=== PATIENT | female | born 1940 | race Caucasian/White ===

== ENCOUNTER 2016-10-29 12:06 | Emergency (ER) | payer OTHER, BC ==
[2016-10-29 12:27] VITALS: TEMP 98; BMI 26.8
--- NOTE | 2016-10-29 12:58 | PDOC ---
History of Present Illness - General Chief Complaint: Pain Stated Complaint: PCP SENT, LEG PAIN,R/O DVT Time Seen by Provider: 10/29/16 12:42 History Source: Patient Exam Limitations: No Limitations - History of Present Illness Initial Comments: 10/29/16 13:12 Patient is a 76 year old female with PMH of HTN & varicose veins who presents to ED with left lower extremity tenderness & swelling. Patient states she has had purplish discoloration and occasional tenderness at left medial leg directly above ankle for over 1 year. She has seen dermatology & vascular surgeon & had varicose vein laser treatment in July. She states the erythma & tenderness has remained, and has increased over the last few weeks, spreading towards the posterior of the calf. The area has increased warmth, erythema & is tender to palpation. Denies fever, chills, CP, SOB,Abdominal pain or other systemic symptoms. Past History - Travel Traveled outside of the country in the last 30 days: No Close contact w/someone who was outside of country & ill: No - Past Medical History Allergies/Adverse Reactions: Allergies Allergy/AdvReac Type Severity Reaction Status Date / Time No Known Allergies Allergy Verified 10/29/16 12:24 Home Medications: Ambulatory Orders Olmesartan Medoxomil [Benicar -] 20 mg PO DAILY 11/03/13 Aspirin [Aspirin EC] 325 mg PO DAILY #0 tablet. 11/09/13 Amlodipine Besylate [Norvasc -] 5 mg PO DAILY #7 tablet 03/27/15 Atorvastatin Ca [Lipitor] 20 mg PO HS 10/29/16 Cardiac Disorders: Yes (foramen ovale) HTN: Yes Hypercholesterolemia: Yes - Surgical History Abdominal Surgery: Yes (hysterectomy) - Family Disease History Comment:: 10/29/16 13:19 noncontributory - Psycho/Social/Smoking Cessation Hx Anxiety: No Suicidal Ideation: No Smoking History: Never smoked Have you smoked in the past 12 months: No Hx Alcohol Use: Yes (social (glass wine "every once in a while")) Drug/Substance Use Hx: No Substance Use Type: None Hx Substance Use Treatment: No Review of Systems - Review of Systems Able to Perform ROS?: Yes Is the patient limited Vietnamese proficient: No Integumentary: Yes: Bruising, Change in Color, Erythema All Other Systems: Reviewed and Negative *Physical Exam - Vital Signs Last Vital Signs Temp Pulse Resp BP Pulse Ox 98 F 108 H 19 152/74 99 10/29/16 12:24 10/29/16 12:24 10/29/16 12:24 10/29/16 12:24 10/29/16 12:24 - Physical Exam General Appearance: Yes: Nourished, Appropriately Dressed HEENT: positive: EOMI, JEFFERY, Normal ENT Inspection, Pharynx Normal Neck: positive: Trachea midline, Normal Thyroid, Supple Respiratory/Chest: positive: Lungs Clear, Normal Breath Sounds Cardiovascular: positive: Regular Rhythm, S1, S2, Tachycardia Gastrointestinal/Abdominal: positive: Normal Bowel Sounds, Flat, Soft Musculoskeletal: positive: Normal Inspection Extremity: positive: Normal Capillary Refill, Normal Range of Motion, Other ( 3x3 inch erythematous area with vascular discoloration on left calf medially above ankle. increased warmth, TTP & swelling inr egion. Palpable pulses bilateral LE) ED Treatment Course - RADIOLOGY Radiology Studies Ordered: Category Date Time Status DUPLEX VASCUL US-1 LEG [US] Stat Ultrasound 10/29/16 12:44 Ordered Medical Decision Making - Medical Decision Making 10/29/16 13:21 DVT vs Cellulitis vs Phlebitis vs combination. LLE US ordered. ID Dr Nelson is consulting on the case. May start antibiotic regimen pending ultrasound results. 10/29/16 13:58 LLE US negative for DVT or any other acute findings 10/29/16 14:29 Discussed case with ID Dr Nelson. Will get in touch with Dr Alvarez to inquire about PMH 10/29/16 14:[address] Alvarez. Patient has old clot at left common femoral vein that he has been following. Patient to followup with him as an outpatient. Instructed her to return to ED if swelling, pain or discoloration worsens. *DC/Admit/Observation/Transfer Diagnosis at time of Disposition: Pain of left lower extremity - Discharge Dispostion Disposition: HOME Condition at time of disposition: Stable Admit: No - Referrals Referrals: Florin Echevarria MD [Primary Care Provider] - - Patient Instructions Additional Instructions: Patient to followup with Dr Alvarez. If redness, pain or swelling worsen, return to ER!
--- NOTE | 2016-10-29 13:15 | PDOC ---
Attending Attestation - Resident Resident Name: Cristian Randall - ED Attending Attestation I have performed the following: I have examined & evaluated the patient, The case was reviewed & discussed with the resident, I agree w/resident's findings & plan, Exceptions are as noted - HPI HPI: 76 yo F history HTN, varicose veings presents with LLE tenderness and swelling. She notes a dark discoloration that has been present to the medial lower leg for over a year, but notes that recently it has been worsening, extending to the posterior part of her lower leg. She states that her compression stockings are not helping. She had a laser procedure for a varicose vein in the same leg, notes that the symptoms did not change, but that now she has a hard nodule to the L thigh. Denies fever, chills, weakness, numbness. - Physicial Exam PE: GENERAL: Awake, alert, and fully oriented, in no acute distress HEAD: No signs of trauma EYES: PERRLA, EOMI, sclera anicteric, conjunctiva clear ENT: Auricles normal inspection, hearing grossly normal, nares patent, oropharynx clear without exudates. Moist mucosa NECK: Normal ROM, supple, no lymphadenopathy, JVD, or masses LUNGS: Breath sounds equal, clear to auscultation bilaterally. No wheezes, and no crackles HEART: Regular rate and rhythm, normal S1 and S2, no murmurs, rubs or gallops ABDOMEN: Soft, nontender, normoactive bowel sounds. No guarding, no rebound. No masses EXTREMITIES: L lower leg with darkened area to medial surface, extending to the posterior lower leg. +Warmth, tenderness to calf. Normal range of motion. No clubbing or cyanosis. No cords, erythema, or tenderness NEUROLOGICAL: Cranial nerves II through XII grossly intact. Normal speech, normal gait SKIN: Warm, Dry, normal turgor, no rashes or lesions noted. - Medical Decision Making Will obtain doppler sono to r/o DVT. Will discuss with Dr. Nelson and Dr. Alvarez.
[2016-10-29 15:05] VITALS: BP 144/74; PULSE 90
== END 2016-10-29 15:05 | disposition home or self-care (01) ==
LOC: JER 12:06
DX: M79.662 Pain in left lower leg (principal); Z86.718 Personal history of other venous thrombosis and embolism; I10 Essential (primary) hypertension; E78.00 Pure hypercholesterolemia, unspecified
CPT/HCPCS: 93971-TC; 99282-25

== ENCOUNTER 2017-01-23 17:13 | Emergency (ER) | payer OTHER, BC ==
[2017-01-23 17:18] VITALS: BMI 26.6
--- NOTE | 2017-01-23 17:34 | PDOC ---
History of Present Illness - General History Source: Patient Exam Limitations: No Limitations - History of Present Illness Initial Comments: 01/23/17 18:27 The patient is a 76 year old female with a significant past medical history of HTN and varicose veins, who presents to the emergency department today for further evaluation of back pain for 5 days. She states that her pain has been constant, dull, and worsening. She states that her pain is a 6/10 in severity occasionally becoming 10/10 in severity with sharp and shooting sensations resulting in loss of breath. She states that, earlier this week, she took one of her 's muscle relaxants and placed a heat pack on her pack for 4 hours with no alleviation of symptoms. She notes today she has taken motrin, 2 tylenol, and 3 ibuprofen with no alleviation of pain. She reports associated loss of appetite, nausea, and decreased urine output but denies dysuria. The patient denies fever, chills, and sweats. The patient denies vomiting, and diarrhea. The patient denies chest pain, cough. PCP: Dr. Echevarria [phone] PAST SURGICAL HISTORY: No significant history reported FAMILY HISTORY: No pertinent history reported SOCIAL HISTORY: None reported <El Holder - Last Filed: 01/23/17 20:32> <Jovan Bacon - Last Filed: 01/23/17 21:00> - General Chief Complaint: Pain, Acute Stated Complaint: PAIN, ACUTE Time Seen by Provider: 01/23/17 17:33 Past History <El Holder - Last Filed: 01/23/17 20:32> - Past Medical History Cardiac Disorders: Yes (foramen ovale) HTN: Yes Hypercholesterolemia: Yes - Surgical History Abdominal Surgery: Yes (hysterectomy) - Psycho/Social/Smoking Cessation Hx Anxiety: No Suicidal Ideation: No Smoking History: Never smoked Have you smoked in the past 12 months: No Information on smoking cessation initiated: No Hx Alcohol Use: No Drug/Substance Use Hx: No Substance Use Type: None Hx Substance Use Treatment: No <Jovan Bacon - Last Filed: 01/23/17 21:00> - Past Medical History Allergies/Adverse Reactions: Allergies Allergy/AdvReac Type Severity Reaction Status Date / Time No Known Allergies Allergy Verified 01/23/17 17:18 Home Medications: Ambulatory Orders Olmesartan Medoxomil [Benicar -] 20 mg PO DAILY 11/03/13 Aspirin [Aspirin EC] 325 mg PO DAILY #0 tablet. 11/09/13 Amlodipine Besylate [Norvasc -] 5 mg PO DAILY #7 tablet 03/27/15 Atorvastatin Ca [Lipitor] 20 mg PO HS 10/29/16 Ondansetron [Zofran Odt -] 4 mg SL TID #21 od.tablet 01/23/17 Oxycodone HCl/Acetaminophen [Percocet 5-325 mg Tablet] 1 - 2 tab PO Q6H #20 tab MDD 4 01/23/17 Review of Systems - Review of Systems Able to Perform ROS?: Yes Comments:: 01/23/17 18:27 GENERAL/CONSTITUTIONAL: No fever or chills. No weakness. HEAD, EYES, EARS, NOSE AND THROAT: No change in vision. No ear pain or discharge. No sore throat. CARDIOVASCULAR: No chest pain. RESPIRATORY: (+) Loss of breath. No cough, wheezing, or hemoptysis. GASTROINTESTINAL: (+) Nausea. No vomiting, diarrhea or constipation. GENITOURINARY: No dysuria, frequency, or change in urination. MUSCULOSKELETAL: (+) Back pain SKIN: No rash NEUROLOGIC: No headache, vertigo, loss of consciousness, or change in strength/ sensation. ENDOCRINE: (+) Loss of appetite. No increased thirst. No abnormal weight change. HEMATOLOGIC/LYMPHATIC: No anemia, easy bleeding, or history of blood clots. ALLERGIC/IMMUNOLOGIC: No hives or skin allergy. <El Holder - Last Filed: 01/23/17 20:32> *Physical Exam - Vital Signs Last Vital Signs Temp Pulse Resp BP Pulse Ox 97.9 F 104 H 18 172/77 99 01/23/17 17:16 01/23/17 17:16 01/23/17 17:16 01/23/17 17:16 01/23/17 17:16 - Physical Exam Comments: 01/23/17 18:28 GENERAL: Awake, alert, and fully oriented, in no acute distress HEAD: No signs of trauma EYES: PERRLA, EOMI, sclera anicteric, conjunctiva clear ENT: Auricles normal inspection, hearing grossly normal, nares patent, oropharynx clear without exudates. Moist mucosa NECK/BACK: (+) Back tenderness on palpation. Normal ROM, supple, no lymphadenopathy, JVD, or masses LUNGS: Breath sounds equal, clear to auscultation bilaterally. No wheezes, and no crackles HEART: Regular rate and rhythm, normal S1 and S2, no murmurs, rubs or gallops ABDOMEN: Soft, nontender, normoactive bowel sounds. No guarding, no rebound. No masses EXTREMITIES: Normal range of motion, no edema. No clubbing or cyanosis. No cords, erythema, or tenderness NEUROLOGICAL: Cranial nerves II through XII grossly intact. Normal speech, normal gait SKIN: Warm, Dry, normal turgor, no rashes or lesions noted. <El Holder - Last Filed: 01/23/17 20:32> - Vital Signs Last Vital Signs Temp Pulse Resp BP Pulse Ox 97.9 F 104 H 18 172/77 99 01/23/17 17:16 01/23/17 17:16 01/23/17 17:16 01/23/17 17:16 01/23/17 17:16 <Jovan Bacon - Last Filed: 01/23/17 21:00> ED Treatment Course - LABORATORY CBC & Chemistry Diagram: 01/23/17 18:27 01/23/17 18:27 - RADIOLOGY Radiograph Interpretation: 01/23/17 19:54 EXAM#: TYPE/EXAM: RESULT: [id number] CT/ABDOMEN PELVIS CT W/O CONTR Abdomen and pelvis CT without contrast Clinical information: left flank pain A 1 mm nonobstructing left renal mid pole calculus is seen. No other urinary tract calculus is identified. There is no hydroureteronephrosis. Left- sided colonic diverticulosis is seen without evidence of acute diverticulitis. There is no CT evidence of acute appendicitis. A 1.7 cm right hepatic lobe cyst is noted which appears slightly increased in size in comparison to a chest CT study of 01/25/2011 (1.5 cm). A small splenic calcification is again seen probably representing a granuloma. The pancreas, gallbladder, adrenal glands and right kidney demonstrate no discrete noncontrast pathology. There is no aortic aneurysm. No free intraperitoneal fluid, pneumoperitoneum or bowel obstruction. Status post hysterectomy. No flank hernia seen. The visualized osseous structures demonstrate no obvious CT evidence of acute pathology or neoplastic disease. Impression: A 1 mm nonobstructing left renal calculus is noted. No other definite urinary tract calculus is identified. There are no CT findings of acute pathology. Left-sided colonic diverticulosis. Small right hepatic lobe cyst. Punctate splenic calcification. Reported By: Alexander Tyler MD 01/23/171939 <El Holder - Last Filed: 01/23/17 20:32> - LABORATORY CBC & Chemistry Diagram: 01/23/17 18:27 01/23/17 18:27 <Jovan Bacon - Last Filed: 01/23/17 21:00> Medical Decision Making - Medical Decision Making 01/23/17 20:33 The patient's labs and CT are normal. Her pain is likely musculoskeletal pain and is not due to a kidney stone nor a kidney infection. <El Holder - Last Filed: 01/23/17 20:32> *DC/Admit/Observation/Transfer - Attestations Scribe Attestion: 01/23/17 18:28 Documentation prepared by El Holder, acting as medical artist for Jovan Bacon DO. <El Holder - Last Filed: 01/23/17 20:32> - Discharge Dispostion Admit: No - Attestations Physician Attestion: 01/23/17 17:34 I, Dr. Jovan Bacon, attest that this document has been prepared under my direction and personally reviewed by me in its entirety. I further attest, that it accurately reflects all work, treatment, procedures and medical decision -making performed by me. <Jovan Bacon - Last Filed: 01/23/17 21:00> Diagnosis at time of Disposition: Musculoskeletal pain - Discharge Dispostion Disposition: HOME Condition at time of disposition: Good - Prescriptions Prescriptions: Oxycodone HCl/Acetaminophen [Percocet 5-325 mg Tablet] 1 - 2 tab PO Q6H #20 tab MDD 4 Ondansetron [Zofran Odt -] 4 mg SL TID #21 od.tablet - Referrals Referrals: Florin Echevarria MD [Primary Care Provider] - - Patient Instructions Printed Discharge Instructions: DI for Low Back Pain Additional Instructions: Mrs Hilton- All of your tests were good. Use the Percocet only if absolutely necessary. Percocet will upset your stomach, so take the zofran first. Return to us if problems, Follow up with Dr. Izaguirre. William- Dr. Jovan Bacon - Post Discharge Activity Work/School Note: Back to Work
[2017-01-23] MEDS ORDERED: ONDANSETRON *ODT* 4 MG TABLET SL ONE (18:30)
[2017-01-23] MEDS ORDERED: OXYCODONE/APAP 5/325MG COMBO TABLET PO ONE (18:30)
[2017-01-23] MEDS ORDERED: OXYCODONE/APAP 5/325MG COMBO TABLET ONE (18:35)
[2017-01-23] MEDS ORDERED: ONDANSETRON *ODT* 4 MG TABLET ONE (18:35)
[2017-01-23 19:23] LABS: BASOPHIL 0.9 % (0-2.0); EOSINOPHIL 4.3 % (0-4.5); MCH 31.2 pg (25.7-33.7); MCHC 33.2 g/dl (32.0-36.0); MEAN PLT VOLUME 8.8 fl (7.5-11.1); NEUTROPHILS 66.7 % (42.8-82.8); PLATELET COUNT 244 K/MM3 (134-434); RDW 13.9 % (11.6-15.6); WHITE BLOOD COUNT 7.1 K/mm3 (4.0-10.0)
[2017-01-23 19:26] LABS: URINE APPEARANCE CLEAR; URINE BILIRUBIN NEGATIVE (NEGATIVE); URINE BLOOD NEGATIVE (NEGATIVE); URINE COLOR STRAW; URINE GLUCOSE (UA) NEGATIVE (NEGATIVE); URINE KETONE NEGATIVE (NEGATIVE); URINE LEUK ESTERASE NEGATIVE (NEGATIVE); URINE NITRITE NEGATIVE (NEGATIVE); URINE PROTEIN NEGATIVE (NEGATIVE); URINE UROBILINOGEN NEGATIVE E.U./dl (0.2-1.0)
[2017-01-23 19:36] LABS: INR 1.04 (0.82-1.09); PROTHROMBIN TIME (PATIENT) 11.4 SEC (9.98-11.88)
[2017-01-23 19:52] LABS: ALBUMIN 4.1 g/dl (3.4-5.0); BILIRUBIN,TOTAL 0.2 mg/dL (0.2-1.0); CALCIUM 9.3 mg/dL (8.5-10.1); COCKROFT - GAULT 55.6835
[2017-01-23 20:47] VITALS: BP 115/59; PULSE 78; TEMP 98.5
== END 2017-01-23 20:55 | disposition home or self-care (01) ==
LOC: JER 17:13
DX: M54.89 Other dorsalgia (principal); I10 Essential (primary) hypertension; E78.00 Pure hypercholesterolemia, unspecified; I86.8 Varicose veins of other specified sites
CPT/HCPCS: 36415; 74176-TC; 80053; 81003; 85025; 85610; 87086; 99282-25

== ENCOUNTER 2017-01-27 08:59 | Observation (INO) | payer OTHER, BC ==
[2017-01-27 09:09] VITALS: BMI 26.6
[2017-01-27] MEDS ORDERED: CYCLOBENZAPRINE HCL 10 MG TABLET (FP) PO ONE (09:29)
[2017-01-27] MEDS ORDERED: KETOROLAC TROMETHAMINE 15 MG/ML VIAL IVPUSH ONE (09:29)
[2017-01-27] MEDS ORDERED: SODIUM CHLORIDE 1,000 ML IV SCH (09:30)
[2017-01-27] MEDS ORDERED: CYCLOBENZAPRINE HCL 10 MG TABLET (FP) ONE (09:31)
[2017-01-27] MEDS ORDERED: KETOROLAC TROMETHAMINE 30 MG/1 ML VIAL ONE (09:31)
[2017-01-27 10:00] LABS: BASOPHIL 1.1 % (0-2.0); MCH 30.8 pg (25.7-33.7); MCHC 33.4 g/dl (32.0-36.0); MEAN CELL VOLUME 92.2 fl (80-96); MEAN PLT VOLUME 8.1 fl (7.5-11.1); NEUTROPHILS 85.1 % (42.8-82.8); PLATELET COUNT 266 K/MM3 (134-434); RDW 12.9 % (11.6-15.6); WHITE BLOOD COUNT 7.5 K/mm3 (4.0-10.8)
--- NOTE | 2017-01-27 10:11 | PDOC ---
History of Present Illness - General Chief Complaint: Pain, Acute Stated Complaint: BACK PAIN Time Seen by Provider: 01/27/17 09:01 History Source: Patient, Old Records Exam Limitations: No Limitations - History of Present Illness Initial Comments: 01/27/17 10:08 76-year-old female with history of hypertension, hyperlipidemia, questionable history of potential blood clots, though with a recent negative left lower extremity duplex presents with persistent left lower back pain. The patient was seen here 4 days ago and was worked up with a CAT scan and blood work and urine work which demonstrated a small left-sided kidney stone. At that time, it was thought this was likely secondary to her muscle skeletal pain. She had taken Percocets and was discharged. She reports that the pain is similar and persistent. Improved with rest and worsened with movement and flexion of her back. Denies any fevers or urinary symptoms. Came back because the Percocets were not working. Patient has been taking her 's anti-inflammatories without much relief and came to the ED. Past History - Past Medical History Allergies/Adverse Reactions: Allergies Allergy/AdvReac Type Severity Reaction Status Date / Time No Known Allergies Allergy Verified 01/27/17 09:00 Home Medications: Ambulatory Orders Olmesartan Medoxomil [Benicar -] 20 mg PO DAILY 11/03/13 Aspirin [Aspirin EC] 325 mg PO DAILY #0 tablet. 11/09/13 Amlodipine Besylate [Norvasc -] 5 mg PO DAILY #7 tablet 03/27/15 Atorvastatin Ca [Lipitor] 20 mg PO HS 10/29/16 Ondansetron [Zofran Odt -] 4 mg SL TID #21 od.tablet 01/23/17 Oxycodone HCl/Acetaminophen [Percocet 5-325 mg Tablet] 1 - 2 tab PO Q6H #20 tab MDD 4 01/23/17 Cardiac Disorders: Yes (foramen ovale) HTN: Yes Hypercholesterolemia: Yes - Surgical History Abdominal Surgery: Yes (hysterectomy) - Psycho/Social/Smoking Cessation Hx Anxiety: No Suicidal Ideation: No Smoking History: Never smoked Have you smoked in the past 12 months: No Hx Alcohol Use: Yes (OCCASIONALLY) Drug/Substance Use Hx: No Substance Use Type: None Hx Substance Use Treatment: No Review of Systems - Review of Systems Able to Perform ROS?: Yes Comments:: 01/27/17 10:09 GENERAL/CONSTITUTIONAL: No fever, weakness. HEAD, EYES, EARS, NOSE AND THROAT: No change in vision. No ear pain or discharge. No sore throat. CARDIOVASCULAR: No chest pain or shortness of breath. RESPIRATORY: No cough, wheezing, or hemoptysis. GASTROINTESTINAL: No abdominal pain, nausea, vomiting, diarrhea, or decreased PO intolerance. GENITOURINARY: No dysuria, frequency, or change in urination. MUSCULOSKELETAL: No joint or muscle swelling or pain. + back pain SKIN: No rash NEUROLOGIC: No headache, vertigo, loss of consciousness, or change in strength/ sensation. ENDOCRINE: No increased thirst. No abnormal weight change. HEMATOLOGIC/LYMPHATIC: No anemia, easy bleeding, or history of blood clots. ALLERGIC/IMMUNOLOGIC: No hives or skin allergy. *Physical Exam - Vital Signs Last Vital Signs Temp Pulse Resp BP Pulse Ox 98.7 F 91 H 18 150/90 100 01/27/17 09:00 01/27/17 09:45 01/27/17 09:45 01/27/17 09:49 01/27/17 09:00 - Physical Exam Comments: 01/27/17 10:09 GENERAL: Awake, alert, and fully oriented, in no acute distress. HEAD: No signs of trauma EYES: PERRLA, EOMI, sclera anicteric, conjunctiva clear ENT: Auricles normal inspection, hearing grossly normal, nares patent, oropharynx clear without exudates. NECK: Normal ROM, supple, no lymphadenopathy, JVD, or masses LUNGS: Breath sounds equal, clear to auscultation bilaterally. No wheezes, and no crackles HEART: Regular rate and rhythm, normal S1 and S2, no murmurs, rubs or gallops ABDOMEN: Soft, nontender, normoactive bowel sounds. No guarding, no rebound. No masses EXTREMITIES: Normal range of motion, no edema. No clubbing or cyanosis. No cords, erythema, or tenderness BACK: TTP Left lower back. NEUROLOGICAL: Cranial nerves II through XII grossly intact. Normal speech, normal gait SKIN: Warm, Dry, normal turgor, no rashes or lesions noted. Heart Score/ECG Review #1 ECG reviewed & interpreted by me at: 09:40 01/27/17 10:11 NSR 91, no std/clara, normal axis, normal intervals, QTC 450 msec ED Treatment Course - LABORATORY CBC & Chemistry Diagram: 01/27/17 09:40 01/27/17 09:40 - ADDITIONAL ORDERS Additional order review: 01/27/17 09:40 RBC 4.30 MCV 92.2 MCHC 33.4 RDW 12.9 MPV 8.1 Neutrophils % 85.1 H Lymphocytes % 9.8 Monocytes % 3.0 L Eosinophils % 1.0 Basophils % 1.1 - RADIOLOGY Radiology Studies Ordered: Category Date Time Status ABDOMEN/PELVIS CTA W/WO CONTR [CT] Stat CT Scan 01/27/17 09:27 Ordered CHEST CTA [CT] Stat CT Scan 01/27/17 09:27 Ordered - Medications Given in the ED: ED Medications Discontinued Medications Generic Name Dose Route Start Last Admin Trade Name Freq PRN Reason Stop Dose Admin Cyclobenzaprine HCl 10 mg 01/27/17 09:29 01/27/17 09:50 Flexeril - PO 01/27/17 09:30 10 mg ONCE ONE Administration Ketorolac Tromethamine 15 mg 01/27/17 09:29 01/27/17 09:50 Toradol Injection - IVPUSH 01/27/17 09:30 15 mg ONCE ONE Administration Medical Decision Making - Medical Decision Making 01/27/17 10:09 Vital Signs Temp Pulse Resp BP Pulse Ox 98.7 F 91 H 18 150/90 100 01/27/17 09:00 01/27/17 09:45 01/27/17 09:45 01/27/17 09:49 01/27/17 09:00 Though my suspicion is that this is likely muscle skeletal as well. However, patient reports that she has had prior history of blood clots. She's not currently on anticoagulation this time. She stated that she has had a distant history of a left lower extremity DVT despite having negative ultrasounds. She also reports that she has a patent foramen ovale. Though I have less suspicion, given her age and prior medical history, we'll need to investigate for potentially infarct kidney versus PE. We'll send labs and a CAT scan area at this time, treat with anti-inflammatories and muscle relaxants. If workup is negative, I feel comfortable treating this as a muscle skeletal pain. 01/27/17 12:36 CBC, BMP 01/27/17 09:40 01/27/17 09:40 CMP Sodium 139 mmol/L (136-145) 01/27/17 09:40 Potassium 4.0 mmol/L (3.5-5.1) 01/27/17 09:40 Chloride 102 mmol/L (98-107) 01/27/17 09:40 Carbon Dioxide 25 mmol/L (22-28) 01/27/17 09:40 Anion Gap 12 (8-16) 01/27/17 09:40 BUN 20 mg/dl (7-18) H 01/27/17 09:40 Creatinine 1.2 mg/dl (0.6-1.3) 01/27/17 09:40 Creat Clearance w eGFR 43.80 (>60) 01/27/17 09:40 Random Glucose 153 mg/dl (74-106) H 01/27/17 09:40 Calcium 9.9 mg/dl (8.4-10.2) 01/27/17 09:40 Total Bilirubin 0.3 mg/dl (0.2-1.0) 01/27/17 09:40 AST 24 U/L (10-42) 01/27/17 09:40 ALT 16 U/L (10-40) 01/27/17 09:40 Alkaline Phosphatase 77 U/L (32-92) 01/27/17 09:40 Creatine Kinase 66 IU/L (26-140) 01/27/17 09:40 Troponin I < 0.03 ng/ml (0.03-0.50) L 01/27/17 09:40 Total Protein 7.3 g/dl (6.4-8.3) 01/27/17 09:40 Albumin 4.3 g/dl (3.5-5.0) 01/27/17 09:40 CT scan demonstrates no renal infarct or PE. Again, likely musculoskeletal. However, patient continues to have persistent pain. She's afraid that if she is discharged she would return given that the percocets and the NSAIDS at home do not improve pain. Case was discussed with Dr. Echevarria. He requests DR. Phillips for pain management. Case discussed with DR. Rodriguez who accepts patient on med/surg observation for intractable back pain. Case discussed in detail with admitting physician including history, physical exam and ancillary studies. Admitting physician has assumed care for the patient, will follow all pending diagnostics and will complete the evaluation and treatment. *DC/Admit/Observation/Transfer Diagnosis at time of Disposition: Back pain Qualifiers: Back pain location: low back pain Chronicity: chronic Back pain laterality: left Sciatica presence: without sciatica Qualified Code(s): M54.5 - Low back pain; G89.29 - Other chronic pain - Discharge Dispostion Condition at time of disposition: Fair Admit: Yes - Referrals Referrals: Florin Echevarria MD [Primary Care Provider] -
[2017-01-27 10:16] LABS: ACTIVATED PTT 29.7 SECONDS (24.0-38.9)
[2017-01-27 10:17] LABS: ALBUMIN 4.3 g/dl (3.5-5.0); BILIRUBIN,TOTAL 0.3 mg/dl (0.2-1.0); CALCIUM 9.9 mg/dl (8.4-10.2); COCKROFT - GAULT 46.4015; CPK(DFH) 66 IU/L (26-140); CREATININE 1.2 mg/dl (0.6-1.3); TOT PROT 7.3 g/dl (6.4-8.3)
[2017-01-27 10:21] LABS: INR 1.11 (0.82-1.09); PROTHROMBIN TIME (PATIENT) 12.4 SEC (10.2-13.0)
[2017-01-27 10:25] LABS: TROPONIN I (DFP) < 0.03 ng/ml (0.03-0.50)
[2017-01-27] MEDS ORDERED: morphine CARPU-JECT 4 MG/1 ML DISP.SYRIN IVPUSH ONE (11:38)
[2017-01-27] MEDS ORDERED: morphine CARPU-JECT 10 MG/1 ML DISP.SYRIN ONE (11:39)
--- NOTE | 2017-01-27 13:30 | HP ---
CHIEF COMPLAINT: back pain PCP: Dr Echevarria Cardiology: Dr Brown Vascular: Dr Kimball HISTORY OF PRESENT ILLNESS: patient is a 76 y/o female with a past medical history of HTN, HLD, and TIA. Patient reports with persistent lower back pain for the past 5 days. She describes the pain as a nonradiating stabbing sensation to the left lower back. patient was evaluated in the emergency department ([facility]) on 01/23/17. CT scan of abd/pelvis was completed which was remarkable for small left-sided kidney stone. she was discharged with a prescription for percocet. She reports taking percocet with no relief of the pain. patient reports ongoing intermittent pain to the left lower back which is improved with rest. patient denies any recent traumas ER course was notable for: (1) cta of chest: no PE (2) ct of abd/pelvis w/contrast: no renal infarct, mass, lessions, or obstructive uropathy (3) creatine 1.2 Recent Travel: none PAST MEDICAL HISTORY: HTN, HLD, TIA, small PFO PAST SURGICAL HISTORY: 08/20/16 vein removal of left lower extremity (ra ) Social History: , resides with , employed as a units medical records secretary Smoking: none Alcohol:none Drugs: none Family History: both parents cancer Allergies No Known Allergies Allergy (Verified 01/27/17 09:00) HOME MEDICATIONS: Home Medications Medication Instructions Recorded Olmesartan Medoxomil [Benicar -] 20 mg PO DAILY 11/03/13 Aspirin [Aspirin EC] 325 mg PO DAILY #0 tablet. 11/09/13 Amlodipine Besylate [Norvasc -] 5 mg PO DAILY #7 tablet 03/27/15 Atorvastatin Ca [Lipitor] 20 mg PO HS 10/29/16 Ondansetron [Zofran Odt -] 4 mg SL TID #21 od.tablet 01/23/17 Oxycodone HCl/Acetaminophen 1 - 2 tab PO Q6H #20 tab MDD 4 01/23/17 [Percocet 5-325 mg Tablet] REVIEW OF SYSTEMS CONSTITUTIONAL: Absent: fever, chills, diaphoresis, generalized weakness, malaise, loss of appetite, weight change HEENT: Absent: rhinorrhea, nasal congestion, throat pain, throat swelling, difficulty swallowing, mouth swelling, ear pain, eye pain, visual changes CARDIOVASCULAR: Absent: chest pain, syncope, palpitations, irregular heart rate, lightheadedness , peripheral edema RESPIRATORY: Absent: cough, shortness of breath, dyspnea with exertion, orthopnea, wheezing, stridor, hemoptysis GASTROINTESTINAL: Absent: abdominal pain, abdominal distension, nausea, vomiting, diarrhea, constipation, melena, hematochezia GENITOURINARY: Absent: dysuria, frequency, urgency, hesitancy, hematuria, flank pain, genital pain MUSCULOSKELETAL: present: back pain, Absent: myalgia, arthralgia, joint swelling, neck pain, denies any saddle anesthesia or changes to bowel or bladder patterns SKIN: Absent: rash, itching, pallor HEMATOLOGIC/IMMUNOLOGIC: Absent: easy bleeding, easy bruising, lymphadenopathy, frequent infections ENDOCRINE: Absent: unexplained weight gain, unexplained weight loss, heat intolerance, cold intolerance NEUROLOGIC: Absent: headache, focal weakness or paresthesias, dizziness, unsteady gait, seizure, mental status changes, bladder or bowel incontinence PSYCHIATRIC: Absent: anxiety, depression, suicidal or homicidal ideation, hallucinations. PHYSICAL EXAMINATION Vital Signs - 24 hr 01/27/17 01/27/17 01/27/17 09:00 09:45 09:49 Temperature 98.7 F Pulse Rate 120 H Pulse Rate [ 91 H Apical] Respiratory 18 18 Rate Blood Pressure 150/90 150/90 Blood Pressure [Arm] O2 Sat by Pulse 100 Oximetry (%) 01/27/17 11:45 Temperature Pulse Rate Pulse Rate [ 83 Apical] Respiratory 18 Rate Blood Pressure Blood Pressure 121/57 [Arm] O2 Sat by Pulse 97 Oximetry (%) GENERAL: Awake, alert, and fully oriented, in no acute distress. HEAD: Normal with no signs of trauma. EYES: Pupils equal, round and reactive to light, extraocular movements intact, sclera anicteric, conjunctiva clear. No lid lag. EARS, NOSE, THROAT: Ears normal, nares patent, oropharynx clear without exudates. Moist mucous membranes. NECK: Normal range of motion, supple without lymphadenopathy, JVD, or masses. LUNGS: Breath sounds equal, clear to auscultation bilaterally. No wheezes, and no crackles. No accessory muscle use. HEART: Regular rate and rhythm, normal S1 and S2 without murmur, rub or gallop. ABDOMEN: Soft, nontender, not distended, normoactive bowel sounds, no guarding, no rebound, no masses. No hepatomegaly or splenomegaly. MUSCULOSKELETAL: Normal range of motion at all joints. No bony deformities or tenderness. No CVA tenderness. negative SLR billaterally at 45 and at 90 degrees , paraspinal tenderness noted to L4 & L5 with muscle spasms UPPER EXTREMITIES: 2+ pulses, warm, well-perfused. No cyanosis. No clubbing. No peripheral edema. LOWER EXTREMITIES: 2+ pulses, warm, well-perfused. No calf tenderness. No peripheral edema. NEUROLOGICAL: Cranial nerves II-XII intact. Normal speech. Normal gait. PSYCHIATRIC: Cooperative. Good eye contact. Appropriate mood and affect. SKIN: Warm, dry, normal turgor, no rashes or lesions noted, normal capillary refill. Laboratory Results - last 24 hr 01/27/17 01/27/17 01/27/17 09:40 09:40 09:40 WBC 7.5 RBC 4.30 Hgb 13.2 Hct 39.6 MCV 92.2 MCHC 33.4 RDW 12.9 Plt Count 266 MPV 8.1 Neutrophils % 85.1 H Lymphocytes % 9.8 Monocytes % 3.0 L Eosinophils % 1.0 Basophils % 1.1 INR 1.11 PTT (Actin FS) 29.7 Sodium 139 Potassium 4.0 Chloride 102 Carbon Dioxide 25 Anion Gap 12 BUN 20 H Creatinine 1.2 Creat Clearance w eGFR 43.80 Random Glucose 153 H Calcium 9.9 Total Bilirubin 0.3 AST 24 ALT 16 Alkaline Phosphatase 77 Creatine Kinase Troponin I Total Protein 7.3 Albumin 4.3 01/27/17 09:40 WBC RBC Hgb Hct MCV MCHC RDW Plt Count MPV Neutrophils % Lymphocytes % Monocytes % Eosinophils % Basophils % INR PTT (Actin FS) Sodium Potassium Chloride Carbon Dioxide Anion Gap BUN Creatinine Creat Clearance w eGFR Random Glucose Calcium Total Bilirubin AST ALT Alkaline Phosphatase Creatine Kinase 66 Troponin I < 0.03 L Total Protein Albumin ASSESSMENT/PLAN: 1) MS back pain - pending mri of lumbar spine - prn oxycodone for moderate pain and morphine for breakthrough pain - PT evaluation - appreciate the input of Dr Phillips pain management 2) card hypertension - continue benicar and norvasc - b/p at goal after pain was controlled, strict monitoring hld - continue lipitor, lft's wnl 3) neuro TIA - CASSIDY from 2013 reviewed, small PFO noted - scd/tavon ordered - asa daily f/e/n - gentle ivf --bun/creatine slightly elevated likely secondary to dehydration - low sodium diet ppx - strict dvt precautions-->scd/tavon - heparin sq - oob - pt eval - zantac dispo: requires observation care Visit type - Emergency Visit Emergency Visit: Yes ED Registration Date: 01/27/17 Care time: The patient presented to the Emergency Department on the above date and was hospitalized for further evaluation of their emergent condition. - New Patient This patient is new to me today: Yes Date on this admission: 01/27/17 - Critical Care Critical Care patient: No
[2017-01-27 13:34] LABS: URINE APPEARANCE Clear; URINE BILIRUBIN Negative (NEGATIVE); URINE BLOOD Negative (NEGATIVE); URINE GLUCOSE (UA) Negative (NEGATIVE); URINE KETONE Negative (NEGATIVE); URINE LEUK ESTERASE Negative (NEGATIVE); URINE NITRITE Negative (NEGATIVE); URINE PROTEIN Negative (NEGATIVE); URINE UROBILINOGEN 0.2 E.U/dl (0.2-1.0)
[2017-01-27 13:35] LABS: URINE COLOR YELLOW
[2017-01-27] MEDS ORDERED: DOCUSATE SODIUM 100 MG CAPSULE (FP) PO PRN (13:46)
[2017-01-27] MEDS ORDERED: oxyCODONE HCL 5 MG TABLET PO PRN (13:46)
[2017-01-27] MEDS ORDERED: diazePAM 5 MG TABLET PO PRN (14:27)
[2017-01-27] MEDS ORDERED: SODIUM CHLORIDE 0.45% 1,000 ML IV SCH (14:30)
[2017-01-27] MEDS: RANITIDINE HCL 150 MG TABLET (FP) PO SCH (16:00)
[2017-01-27] MEDS: morphine CARPU-JECT 2 MG/1 ML DISP.SYRIN IVPUSH PRN ×2 (18:37→22:20)
--- NOTE | 2017-01-27 19:05 | CONSULT ---
Consult Consult Specialty:: pain medicine Referred by:: dr ellis Reason for Consultation:: back pain - History of Present Illness Chief Complaint: back pain History of Present Illness: patient is a 76 y/o female with a past medical history of HTN, HLD, and TIA. Patient reports with persistent lower back pain for the past 5 days. She describes the pain as a nonradiating stabbing sensation to the left lower back. MRI results reviewed- lumbar spondylosis with spinal stenosis at l45 Pain is located in the left lumbar region with 10/10 score when standing and walking PAST MEDICAL HISTORY: HTN, HLD, TIA, small PFO PAST SURGICAL HISTORY: 08/20/16 vein removal of left lower extremity ([place] ) - Alcohol/Substance Use Hx Alcohol Use: Yes (OCCASIONALLY) - Smoking History Smoking history: Never smoked Have you smoked in the past 12 months: No Home Medications - Allergies Allergies/Adverse Reactions: Allergies Allergy/AdvReac Type Severity Reaction Status Date / Time No Known Allergies Allergy Verified 01/27/17 09:00 - Home Medications Home Medications: Ambulatory Orders Olmesartan Medoxomil [Benicar -] 20 mg PO DAILY 11/03/13 Aspirin [Aspirin EC] 325 mg PO DAILY #0 tablet. 11/09/13 Amlodipine Besylate [Norvasc -] 5 mg PO DAILY #7 tablet 03/27/15 Atorvastatin Ca [Lipitor] 20 mg PO HS 10/29/16 Ondansetron [Zofran Odt -] 4 mg SL TID #21 od.tablet 01/23/17 Oxycodone HCl/Acetaminophen [Percocet 5-325 mg Tablet] 1 - 2 tab PO Q6H #20 tab MDD 4 01/23/17 Physical Exam Vital Signs: Vital Signs Temperature 97.7 F 01/27/17 13:30 Pulse Rate 82 01/27/17 13:30 Respiratory Rate 16 01/27/17 13:30 Blood Pressure 131/65 01/27/17 13:30 O2 Sat by Pulse Oximetry (%) 98 01/27/17 13:30 Musculoskeletal: Yes: Back Pain (on left side with palpation over the left lower lumbar region) Assessment/Plan Lumbar spondylosis/spinal stenosis 1. INterventionally- the patient may benefit from lumbar facet blocks on left side. I spoke to the patient regarding this procedure and she may consider it if she is not better by tomorrow 2. Pharmacologically- the patient can be try vicodin 5/325 po q6h prn pain to try to limit iv morphine. continue nsaid prn pain if no contraindications 3. physical therapy/rehab eval
[2017-01-27] MEDS: HEPARIN NA (PORCINE) 5,000 UNITS/ML 1ML VIAL SQ SCH (21:24)
[2017-01-27] MEDS: ATORVASTATIN CA 20 MG TABLET (FP) PO SCH (21:24)
[2017-01-28] MEDS: morphine CARPU-JECT 2 MG/1 ML DISP.SYRIN IVPUSH PRN (06:36)
[2017-01-28 08:29] LABS: BASOPHIL 0.7 % (0-2.0); EOSINOPHIL 4.2 % (0-4.5); MCH 30.2 pg (25.7-33.7); MCHC 32.6 g/dl (32.0-36.0); MEAN CELL VOLUME 92.5 fl (80-96); MEAN PLT VOLUME 7.9 fl (7.5-11.1); NEUTROPHILS 67.9 % (42.8-82.8); PLATELET COUNT 216 K/MM3 (134-434); RDW 12.6 % (11.6-15.6); WHITE BLOOD COUNT 6.3 K/mm3 (4.0-10.8)
--- NOTE | 2017-01-28 09:04 | EKG ---
Test Reason : Blood Pressure : / mmHG Vent. Rate : 091 BPM Atrial Rate : 091 BPM P-R Int : 150 ms QRS Dur : 074 ms QT Int : 366 ms P-R-T Axes : 058 046 055 degrees QTc Int : 450 ms NORMAL SINUS RHYTHM WHEN COMPARED WITH ECG OF 27-MAR-2015 08:52, NO SIGNIFICANT CHANGE WAS FOUND Confirmed by MD FABIAN MARJORY ([id number]) on 01/28/2017 9:04:38 AM Referred By: LATOYA Confirmed By:JANI FABIAN MD
[2017-01-28 09:31] LABS: CALCIUM 8.8 mg/dl (8.4-10.2); COCKROFT - GAULT 61.8715; CREATININE 0.9 mg/dl (0.6-1.3)
[2017-01-28] MEDS: ASPIRIN 325 MG ENTERIC COATED TABLET (FP) PO SCH (10:24)
--- NOTE | 2017-01-28 10:24 | PN ---
Progress Note, Physician Chief Complaint: Still with back pain, has not gotten out of bed yet. No cp, sob, n/v. - Current Medication List Current Medications: Active Medications Amlodipine Besylate (Norvasc -) 5 mg PO DAILY [facility] Aspirin (Ecotrin -) 325 mg PO DAILY [facility] Atorvastatin Calcium (Lipitor -) 20 mg PO HS [facility] Last Admin: 01/27/17 21:24 Dose: Not Given Diazepam (Valium -) 5 mg PO TID PRN PRN Reason: MUSCLE SPASMS Docusate Sodium (Colace -) 100 mg PO Q8H PRN PRN Reason: CONSTIPATION Heparin Sodium (Porcine) (Heparin -) 5,000 unit SQ BID [facility] Last Admin: 01/27/17 21:24 Dose: 5,000 unit Oxycodone HCl (Roxicodone -) 5 mg PO Q4H PRN PRN Reason: MODERATE PAIN Oxycodone/Acetaminophen (Percocet 5/325 -) 1 combo PO Q6H PRN PRN Reason: PAIN LEVEL 6-10 Ranitidine HCl (Zantac -) 150 mg PO DAILY [facility] Last Admin: 01/27/17 16:00 Dose: 150 mg Valsartan (Diovan -) 160 mg PO DAILY [facility] - Objective Vital Signs: Vital Signs Temperature 98.6 F 01/28/17 05:56 Pulse Rate 83 01/28/17 05:56 Respiratory Rate 19 01/28/17 05:56 Blood Pressure 109/48 01/28/17 05:56 O2 Sat by Pulse Oximetry (%) 94 L 01/28/17 08:07 Constitutional: Yes: Well Nourished, No Distress, Calm Cardiovascular: Yes: Regular Rate and Rhythm. No: Gallop, Murmur, Rub Respiratory: Yes: Regular, CTA Bilaterally. No: Rales, Rhonchi, Wheezes Gastrointestinal: Yes: Normal Bowel Sounds, Soft. No: Distention, Tenderness Extremities: Yes: WNL Edema: No Labs: CBC, BMP 01/28/17 08:05 01/28/17 08:05 INR, PTT INR 1.11 (0.82-1.09) 01/27/17 09:40 Problem List - Problems (1) Spinal stenosis of lumbar region Assessment/Plan: -patient with intractable back pain -case d/w Dr Saini -recommended vicodin, however vicodin not formulary -will try trial of percocet -PT consult -if pain not controlled, will failed conservative therapy and plan for injection Code(s): M48.06 - SPINAL STENOSIS, LUMBAR REGION (2) Back pain Assessment/Plan: -as above Code(s): M54.9 - DORSALGIA, UNSPECIFIED Qualifiers: Back pain location: low back pain Chronicity: chronic Back pain laterality: left Sciatica presence: without sciatica Qualified Code(s): M54.5 - Low back pain (3) Hypertension Assessment/Plan: -continue valsartan and amlodipine Code(s): I10 - ESSENTIAL (PRIMARY) HYPERTENSION (4) HLD (hyperlipidemia) Assessment/Plan: -continue lipitor Code(s): E78.5 - HYPERLIPIDEMIA, UNSPECIFIED
[2017-01-28] MEDS: VALSARTAN 160 MG TABLET (UD) PO SCH (10:25)
[2017-01-28] MEDS: OXYCODONE/APAP 5/325MG COMBO TABLET PO PRN ×2 (10:25→17:16)
[2017-01-28] MEDS: RANITIDINE HCL 150 MG TABLET (FP) PO SCH (10:25)
[2017-01-28] MEDS: amLODIPine BESYLATE 5 MG TABLET (FP) PO SCH (10:25)
[2017-01-28] MEDS: HEPARIN NA (PORCINE) 5,000 UNITS/ML 1ML VIAL SQ SCH ×2 (10:26→21:31)
[2017-01-28] MEDS: ATORVASTATIN CA 20 MG TABLET (FP) PO SCH (21:28)
[2017-01-29 06:32] VITALS: BP 129/63; PULSE 97; TEMP 98.6
[2017-01-29 08:46] LABS: ANION GAP 6 (8-16); CO2 26 mmol/L (22-28); CREATININE 0.9 mg/dl (0.6-1.3); GLUCOSE,RANDOM 89 mg/dl (74-106); PHOSPHOROUS 3.9 mg/dl (2.5-4.6)
[2017-01-29 09:28] LABS: BASOPHIL 0.9 % (0-2.0); EOSINOPHIL 4.7 % (0-4.5); MCH 31.3 pg (25.7-33.7); MCHC 33.7 g/dl (32.0-36.0); MEAN CELL VOLUME 92.6 fl (80-96); MEAN PLT VOLUME 8.5 fl (7.5-11.1); PLATELET COUNT 206 K/MM3 (134-434); RDW 12.8 % (11.6-15.6); WHITE BLOOD COUNT 5.6 K/mm3 (4.0-10.8)
[2017-01-29 09:29] LABS: INR 1.09 (0.82-1.09); PROTHROMBIN TIME (PATIENT) 12.2 SEC (10.2-13.0)
--- NOTE | 2017-01-29 10:04 | DS ---
Physical Examination Vital Signs: Vital Signs Temperature 98.6 F 01/29/17 06:00 Pulse Rate 97 H 01/29/17 06:00 Respiratory Rate 19 01/29/17 06:00 Blood Pressure 129/63 01/29/17 06:00 O2 Sat by Pulse Oximetry (%) 95 01/29/17 06:00 Constitutional: Yes: Well Nourished, No Distress, Calm Cardiovascular: Yes: Regular Rate and Rhythm. No: Gallop, Murmur, Rub Respiratory: Yes: Regular, CTA Bilaterally. No: Rales, Rhonchi, Wheezes Gastrointestinal: Yes: Normal Bowel Sounds, Soft. No: Distention, Tenderness Extremities: Yes: WNL Edema: No Labs: CBC, BMP 01/29/17 07:28 01/29/17 07:28 Discharge Summary Reason For Visit: BACK PAIN Current Active Problems Back pain (Acute) HLD (hyperlipidemia) (Acute) Spinal stenosis of lumbar region (Acute) Hospital Course: (1) Spinal stenosis of lumbar region Code(s): M48.06 - SPINAL STENOSIS, LUMBAR REGION (2) Back pain Code(s): M54.9 - DORSALGIA, UNSPECIFIED Qualifiers: Back pain location: low back pain Chronicity: chronic Back pain laterality: left Sciatica presence: without sciatica Qualified Code(s): M54.5 - Low back pain (3) Hypertension Code(s): I10 - ESSENTIAL (PRIMARY) HYPERTENSION (4) HLD (hyperlipidemia) Code(s): E78.5 - HYPERLIPIDEMIA, UNSPECIFIED Mrs Hilton is a very pleasant 76 year old female who came in with intractable back pain secondary to spinal stenosis. She was admitted under observation. MRI was performed and read reviewed. She was seen by Dr Saini and recommended conservative management. She responded well to this and is currently pain free. She is safe for discharge home. Condition: Good - Instructions Diet, Activity, Other Instructions: May return to work on 02/03, light duty. Avoid lifting heavy objects until cleared by Dr Echevarria. Otherwise can resume normal activity and previous diet. Referrals: Finesse Phillips MD [Staff Physician] - Florin Echevarria MD [Primary Care Provider] - Disposition: HOME - Home Medications Comprehensive Discharge Medication List: Ambulatory Orders Olmesartan Medoxomil [Benicar -] 20 mg PO DAILY 11/03/13 Aspirin [Aspirin EC] 325 mg PO DAILY #0 tablet. 11/09/13 Amlodipine Besylate [Norvasc -] 5 mg PO DAILY #7 tablet 03/27/15 Atorvastatin Ca [Lipitor] 20 mg PO HS 10/29/16 Ondansetron [Zofran Odt -] 4 mg SL TID #21 od.tablet 01/23/17 Oxycodone HCl/Acetaminophen [Percocet 5-325 mg Tablet] 1 - 2 tab PO Q6H #20 tab MDD 4 01/23/17 Docusate Sodium [Colace -] 100 mg PO Q8H PRN #0 cap 01/29/17
[2017-01-29] MEDS: ASPIRIN 325 MG ENTERIC COATED TABLET (FP) PO SCH (10:17)
[2017-01-29] MEDS: amLODIPine BESYLATE 5 MG TABLET (FP) PO SCH (10:17)
[2017-01-29] MEDS: VALSARTAN 160 MG TABLET (UD) PO SCH (10:18)
[2017-01-29] MEDS: RANITIDINE HCL 150 MG TABLET (FP) PO SCH (10:18)
[2017-01-29] MEDS: HEPARIN NA (PORCINE) 5,000 UNITS/ML 1ML VIAL SQ SCH (10:18)
== END 2017-01-29 11:40 | disposition home or self-care (01) ==
LOC: SUPCPDRO 08:59 → FER 08:59 → FM/S 13:30
PROVIDERS: ADMIT Internal Medicine; ATTEND Internal Medicine
PROC: 3E0333Z Introduction of Anti-inflammatory into Peripheral Vein, Percutaneous Approach (ICD-10-PCS; principal; 2017-01-27)
PROC: 3E033NZ Introduction of Analgesics, Hypnotics, Sedatives into Peripheral Vein, Percutaneous Approach (ICD-10-PCS; 2017-01-27)
PROC: 3E0337Z Introduction of Electrolytic and Water Balance Substance into Peripheral Vein, Percutaneous Approach (ICD-10-PCS; 2017-01-27)
DX: M48.06 Spinal stenosis, lumbar region (principal); M54.5 Low back pain; G89.29 Other chronic pain; I10 Essential (primary) hypertension; E78.5 Hyperlipidemia, unspecified; Q21.1 Atrial septal defect; Z79.82 Long term (current) use of aspirin; Z90.710 Acquired absence of both cervix and uterus; Z86.73 Personal history of transient ischemic attack (TIA), and cerebral infarction without residual deficits; M47.9 Spondylosis, unspecified
CPT/HCPCS: 36415; 71275-TC; 72148-TC; 74177-TC; 80048; 80053; 81003; 82550; 83735; 84100; 84484; 85025; 85610; 85730; 87086; 87186; 93005; 97116-GP; 97161; 99282-25; G0378; J1644

== ENCOUNTER 2017-02-28 11:47 | Day surgery (SDC) | payer OTHER, BC ==
[2017-02-28 12:41] VITALS: BMI 25.9
[2017-02-28] MEDS ORDERED: PROPOFOL 20 ML ONE (13:33)
[2017-02-28 14:44] VITALS: TEMP 97.6
[2017-02-28 15:31] VITALS: BP 124/66; PULSE 77
--- NOTE | 2017-03-04 11:33 | PATH ---
Surgical Pathology Report Patient Name: GILES HARP [facility]. Rec. #: [id number] /Age/Gender: 1940 (Age: 76) / F Account: [id number] Location: U-ENDOSCOPY Taken: 02/28/2017 Received: 03/03/2017 Reported: 03/04/2017 Physicians: Delmy Reynolds M.D. Specimen(s) Received A: BX DUODENUM & BULB B: BX ANTRAL ULCERS C: BX GE JUNCTION Clinical History Left upper quadrant pain Gastric antrum ulcers Final Diagnosis A. DUODENUM AND BULB, BIOPSY: DUODENAL MUCOSA WITH MILD CHRONIC INFLAMMATION AND FOCAL JULISSA'S GLANDS HYPERPLASIA. NO HISTOLOGIC EVIDENCE OF GLUTEN SENSITIVE ENTEROPATHY (CELIAC DISEASE). B. STOMACH, ANTRUM, ULCERS, BIOPSY: GASTRIC ANTRAL AND OXYNTIC MUCOSA WITH MODERATE CHRONIC GASTRITIS AND REACTIVE GASTROPATHY. IMMUNOSTAIN FOR H. PYLORI IS NEGATIVE FOR ORGANISMS. C. GE JUNCTION, BIOPSY: SQUAMOUS EPITHELIUM WITH CHRONIC INFLAMMATION AND MARKED REFLUX TYPE CHANGES. NO COLUMNAR EPITHELIUM PRESENT (NO INTESTINAL METAPLASIA SLIGHT YOON'S ESOPHAGUS IDENTIFIED). Electronically Signed Caleb Bailey M.D. Gross Description A. Received in formalin, labeled "biopsy duodenum and bulb" are 3 reid, irregular portions of soft tissue ranging from 0.4-0.5 cm in greatest dimension. The specimens are submitted in toto in one cassette. B. Received in formalin, labeled "biopsy antral ulcers" are 5 reid, irregular portions of soft tissue ranging from 0.1-0.3 cm in greatest dimension. The specimens are submitted in toto in one cassette. C. Received in formalin, labeled "biopsy GE junction" are 3 reid, irregular portions of soft tissue ranging from 0.1-0.7 cm in greatest dimension. The specimens are submitted in toto in one cassette. DL/03/03/2017 saudi/03/03/2017
== END 2017-02-28 15:25 | disposition home or self-care (01) ==
LOC: JASU-ENDO 11:47
PROVIDERS: ATTEND Internal Medicine Gastroenterology
PROC: 0DB98ZX Excision of Duodenum, Via Natural or Artificial Opening Endoscopic, Diagnostic (ICD-10-PCS; 2017-02-28)
PROC: 0DB68ZX Excision of Stomach, Via Natural or Artificial Opening Endoscopic, Diagnostic (ICD-10-PCS; 2017-02-28)
PROC: 0DB48ZX Excision of Esophagogastric Junction, Via Natural or Artificial Opening Endoscopic, Diagnostic (ICD-10-PCS; principal; 2017-02-28 12:30)
DX: K25.9 Gastric ulcer, unspecified as acute or chronic, without hemorrhage or perforation (principal); K44.9 Diaphragmatic hernia without obstruction or gangrene; K29.70 Gastritis, unspecified, without bleeding
CPT/HCPCS: 88305-TC; 88342-TC

== ENCOUNTER 2017-03-23 15:24 | Inpatient (IN) | payer OTHER, BC ==
--- NOTE | 2017-03-23 15:42 | PDOC ---
History of Present Illness - General History Source: Patient, Spouse, Old Records Exam Limitations: No Limitations - History of Present Illness Initial Comments: 03/23/17 17:36 The patient is a 76 year old female, with a significant past medical history of hypertension, hyperlipidemia and PFO, who presents to the emergency department with fever, chills and generalized weakness for the past 2-3 days. The patient reports that she began running a fever 2 days ago, which was measured to be 103.4 degrees (orally). She reports that she has been taking Tylenol or Ibuprofen for the fever but notes that as soon as the medication wears off, her fever spikes again. This afternoon, the patient reports that her temperature was 103.3 degrees (orally) so she decided to visit the ED for further evaluation. The patient reports that she recently returned from a trip to [place] one week ago. She does notes that her symptoms began a couple days after returning home. The patient does report [place] and was watching a dog earlier this week, during which she was regularly taking the dog outside for walks. The patient additionally reports that 3 weeks ago, she had a tooth extracted and was on a course of antibiotics for several days. The patient denies any headache, sinus pain, sore throat or ear pain. The patient denies any cough or shortness of breath. The patient denies any nausea, vomiting, diarrhea or abdominal pain. The patient denies back pain. The patient denies dysuria, hematuria, frequency, urgency or hesitancy. The patient denies any rashes or ticks. The patients is at the bedside. Allergies: None reported. Past Surgical History: Hysterectomy; Orthopedic Surgery (Torn Meniscus). Social History: Non-smoker. Occasional alcohol consumption. Denies drug use. PCP: Dr. Echevarria <Millicent Aguilar - Last Filed: 03/23/17 18:35> <Rory Mayfield - Last Filed: 03/23/17 19:12> - General Chief Complaint: Cold Symptoms Stated Complaint: FEVER CHILLS ON AND OFF FOR 2 DAYS Time Seen by Provider: 03/23/17 15:41 Past History <Millicent Aguilar - Last Filed: 03/23/17 18:35> - Past Medical History Cardiac Disorders: Yes (foramen ovale) HTN: Yes Hypercholesterolemia: Yes - Surgical History Abdominal Surgery: Yes (hysterectomy) Orthopedic Surgery: Yes (KNEE, TORN MENISCUS) - Psycho/Social/Smoking Cessation Hx Anxiety: No Suicidal Ideation: No Smoking History: Never smoked Have you smoked in the past 12 months: No Hx Alcohol Use: Yes (OCCASIONALLY) Drug/Substance Use Hx: No Substance Use Type: None Hx Substance Use Treatment: No <SapnaRory rodgers - Last Filed: 03/23/17 19:12> - Past Medical History Allergies/Adverse Reactions: Allergies Allergy/AdvReac Type Severity Reaction Status Date / Time No Known Allergies Allergy Verified 03/23/17 15:27 Home Medications: Ambulatory Orders Olmesartan Medoxomil [Benicar -] 20 mg PO DAILY 11/03/13 Amlodipine Besylate [Norvasc -] 5 mg PO DAILY #7 tablet 03/27/15 Atorvastatin Ca [Lipitor] 20 mg PO HS 10/29/16 Ascorbic Acid [Vitamin C -] 1,000 mg PO DAILY 02/28/17 Calcium Carbonate [Calcium] 600 mg PO DAILY 02/28/17 Cholecalciferol (Vitamin D3) [Vitamin D3] 2,000 unit PO DAILY 02/28/17 Folic Acid 400 mg PO DAILY 02/28/17 Magnesium 250 mg PO DAILY 02/28/17 Vitamin B Complex [B Complex] 1 each PO DAILY 02/28/17 Vitamin E 400 unit PO DAILY 02/28/17 Pantoprazole Sodium [Protonix] 40 mg PO DAILY 03/23/17 Review of Systems - Review of Systems Able to Perform ROS?: Yes Comments:: 03/23/17 16:22 CONSTITUTIONAL: Present: +Fever, chills, generalized weakness Absent: diaphoresis, malaise, loss of appetite HEENT: Absent: rhinorrhea, nasal congestion, throat pain, throat swelling, difficulty swallowing, mouth swelling, ear pain, eye pain, visual Changes CARDIOVASCULAR: Absent: chest pain, syncope, palpitations, irregular heart rate, lightheadedness , peripheral edema RESPIRATORY: Absent: cough, shortness of breath, dyspnea with exertion, orthopnea, wheezing, stridor, hemoptysis GASTROINTESTINAL: Absent: abdominal pain, abdominal distension, nausea, vomiting, diarrhea, constipation, melena, hematochezia GENITOURINARY: Absent: dysuria, frequency, urgency, hesitancy, hematuria, flank pain, genital pain MUSCULOSKELETAL: Absent: myalgia, arthralgia, joint swelling SKIN: Absent: rash, itching, pallor HEMATOLOGIC/IMMUNOLOGIC: Absent: easy bleeding, easy bruising, lymphadenopathy, frequent infections ENDOCRINE: Absent: unexplained weight gain, unexplained weight loss, heat intolerance, cold intolerance NEUROLOGIC: Absent: headache, focal weakness or paresthesias, dizziness, unsteady gait, seizure, mental status changes, bladder or bowel incontinence PSYCHIATRIC: Absent: anxiety, depression, suicidal or homicidal ideation, hallucinations <Millicent Aguilar - Last Filed: 03/23/17 18:35> *Physical Exam - Vital Signs Last Vital Signs Temp Pulse Resp BP Pulse Ox 99.7 F H 116 H 16 117/64 96 03/23/17 15:27 03/23/17 15:27 03/23/17 15:27 03/23/17 15:27 03/23/17 15:27 - Physical Exam Comments: 03/23/17 16:21 GENERAL: Well developed, well nourished. Awake and alert. No acute distress. HEENT: Dry mucous membranes. Normocephalic, atraumatic. PERRLA, EOMI. No conjunctival pallor. Sclera are non-icteric. Oropharynx is clear. NECK: Supple. Full ROM. No JVD. Carotid pulses 2+ and symmetric, without bruits. No thyromegaly. No lymphadenopathy. CARDIOVASCULAR: Tachycardic. No murmurs, rubs, or gallops. Distal pulses are 2+ and symmetric. PULMONARY: No evidence of respiratory distress. Lungs clear to auscultation bilaterally. No wheezing, rales or rhonchi. ABDOMINAL: Soft. Non-tender. Non-distended. No rebound or guarding. No organomegaly. Normoactive bowel sounds. MUSCULOSKELETAL: Normal range of motion at all joints. No bony deformities or tenderness. No CVA tenderness. EXTREMITIES: No cyanosis. No clubbing. No edema. No calf tenderness. SKIN: Warm and dry. Normal capillary refill. No rashes. No jaundice. NEUROLOGICAL: Alert, awake, appropriate. Cranial nerves 2-12 intact. No deficits to light touch and temperature in face, upper extremities and lower extremities. No motor deficits in the in face, upper extremities and lower extremities. Normoreflexic in the upper and lower extremities. Normal speech. Toes are down-going bilaterally. Gait is normal without ataxia. PSYCHIATRIC: Cooperative. Good eye contact. Appropriate mood and affect. <Millicent Aguilar - Last Filed: 03/23/17 18:35> ED Treatment Course - LABORATORY CBC & Chemistry Diagram: 03/23/17 16:13 03/23/17 16:00 <Millicent Aguilar - Last Filed: 03/23/17 18:35> - LABORATORY CBC & Chemistry Diagram: 03/23/17 16:13 03/23/17 16:00 <Rory Mayfield - Last Filed: 03/23/17 19:12> Medical Decision Making - Medical Decision Making 03/23/17 17:[address] Echevarria at 17:28. Referred to answering service, awaiting callback. Dr. Fields (covering for Dr. Echevarria) returned call, case discussed. <Millicent Aguilar - Last Filed: 03/23/17 18:35> - Medical Decision Making 03/23/17 15:45 The patient is well-appearing and in no acute distress She has 1 SIRS criteria: Heart rate greater than 90 Will initiate sepsis order set Will obtain rectal temperature Will begin normal saline hydration Given her lack of focality and the height of her fever, as well as our location , I am concerned for tickborne illness She did have dental work approximately 3 weeks ago, raising the possibility of endocarditis However, she was completely asymptomatic until Friday03/23/17 16:19 Rectal fever noted She now meets diagnostic criteria for SIRS Labs and chest x-ray pending 03/23/17 16:39 Chest x-ray emergency Department interpretation: No acute cardiopulmonary disease 03/23/17 17:02 CBC noted, with relative thrombocytopenia and leukocytosis Laboratory Tests 01/28/17 01/29/17 03/23/17 08:05 07:28 16:13 WBC 6.3 5.6 9.0 D Hgb 11.1 D 11.4 11.7 Plt Count 216 206 158 D 03/23/17 17:26 Labs noted There is no transaminitis Urinalysis does suggest UTI Clinical impression: Sepsis UTI Case discussed in detail with admitting provider including history, physical exam and ancillary studies. Admitting physician has assumed care for the patient, will follow all pending diagnostics and will complete the evaluation and treatment. A portion of this note was documented by scribe services under my direction. I have reviewed the details of the note, within reason, and agree with the documentation with the following case summary and management plan written by me. 03/23/17 17:51 Elevated CRP of 12.9 noted She continues to deny any focality of her symptoms Given that she had dental work 3 weeks ago, and that she has a markedly elevated CRP, I have discussed the possibility of endocarditis with her admitting physician (Dr. Fields) and he will follow-up. We have drawn 3 sets of broken blood cultures, from 3 different sites, at least 20 minutes apart. This was done prior to the administration of antibiotics. She also does mention intermittent left flank pain over the past several months. She has NOT had symptoms for the past several days. Inpatient team could consider CT CAP to ro occult intra-thotacic / intra- abdominal pathology As we have no autocad technician on site, I feel these studies can be deferred to the morning 03/23/17 19:12 <Rory Mayfield - Last Filed: 03/23/17 19:12> *DC/Admit/Observation/Transfer - Attestations Scribe Attestion: 03/23/17 15:56 Documentation prepared by Millicent Aguilar, acting as medical office technologist for Rory Mayfield MD. <Millicent Aguilar - Last Filed: 03/23/17 18:35> - Discharge Dispostion Admit: Yes <Rory Mayfield - Last Filed: 03/23/17 19:12> Diagnosis at time of Disposition: Sepsis, UTI (urinary tract infection) - Discharge Dispostion Condition at time of disposition: Stable
[2017-03-23] MEDS ORDERED: SODIUM CHLORIDE 1,000 ML IV STA (16:18)
[2017-03-23] MEDS ORDERED: ACETAMINOPHEN 325 MG TABLET (FP) PO ONE (16:18)
[2017-03-23] MEDS ORDERED: ACETAMINOPHEN 325 MG TABLET (FP) ONE (16:19)
[2017-03-23 16:31] LABS: PH,URINE 5.5 (4.5-8); URINE APPEARANCE Clear; URINE BILIRUBIN 1+ (NEGATIVE); URINE GLUCOSE (UA) Negative (NEGATIVE); URINE KETONE Negative (NEGATIVE); URINE NITRITE Negative (NEGATIVE); URINE UROBILINOGEN 0.2 E.U/dl (0.2-1.0)
[2017-03-23 16:39] LABS: BASOPHIL 0.2 % (0-2.0); EOSINOPHIL 0.1 % (0-4.5); MCH 31.6 pg (25.7-33.7); MCHC 34.7 g/dl (32.0-36.0); MEAN CELL VOLUME 90.9 fl (80-96); MEAN PLT VOLUME 8.1 fl (7.5-11.1); NEUTROPHILS 86.7 % (42.8-82.8); PLATELET COUNT 158 K/MM3 (134-434); RDW 13.6 % (11.6-15.6)
[2017-03-23 16:51] LABS: URINE BLOOD 2+ (NEGATIVE); URINE COLOR YELLOW; URINE LEUK ESTERASE 3+ (NEGATIVE); URINE PROTEIN 2+ (NEGATIVE)
[2017-03-23 16:54] LABS: INR 1.28 (0.82-1.09); PROTHROMBIN TIME (PATIENT) 14.3 SEC (10.2-13.0)
[2017-03-23 17:01] LABS: ALBUMIN 3.8 g/dl (3.5-5.0); ALK PHOS 62 U/L (32-92); BILIRUBIN,TOTAL 0.8 mg/dl (0.2-1.0); CALCIUM 8.7 mg/dl (8.4-10.2); CREATININE 1.1 mg/dl (0.6-1.3); GLUCOSE,RANDOM 153 mg/dl (74-106); SGOT/AST 35 U/L (10-42); SGPT/ALT 23 U/L (10-40); TOT PROT 6.7 g/dl (6.4-8.3)
[2017-03-23 17:01] LABS: ACTIVATED PTT 27.2 SECONDS (24.0-38.9)
[2017-03-23 17:11] LABS: URINE BACTERIA FEW /hpf (NEGATIVE); URINE WBC 50-80 (3-5)
[2017-03-23] MEDS ORDERED: CEFTRIAXONE 1 GM in DEXTROSE 5%-WATER - 50 ML IVPB ONE (17:26)
[2017-03-23 17:32] LABS: CO2 21 mmol/L (22-28)
[2017-03-23 17:33] LABS: ANION GAP 11 (8-16)
[2017-03-23] MEDS ORDERED: cefTRIAXone SODIUM 1 GM VIAL ONE (17:55)
[2017-03-23] MEDS ORDERED: VANCOMYCIN 1,000 MG in DEXTROSE 5%-WATER - 250 ML IVPB ONE (18:56)
[2017-03-23] MEDS ORDERED: VANCOMYCIN 1,000 MG VIAL (RESTRICTED TO ID ONLY) ONE (19:13)
[2017-03-23 21:54] VITALS: BMI 24.4
[2017-03-24] MEDS: ACETAMINOPHEN 500 MG TABLET (FP) PO PRN ×3 (01:35→22:44)
--- NOTE | 2017-03-24 09:17 | EKG ---
Test Reason : Blood Pressure : / mmHG Vent. Rate : 075 BPM Atrial Rate : 075 BPM P-R Int : 166 ms QRS Dur : 072 ms QT Int : 418 ms P-R-T Axes : 045 039 038 degrees QTc Int : 466 ms NORMAL SINUS RHYTHM NORMAL ECG WHEN COMPARED WITH ECG OF 27-JAN-2017 09:34, NO SIGNIFICANT CHANGE WAS FOUND Confirmed by EFRAIN POOLE MD ([id number]) on 03/24/2017 9:17:32 AM Referred By: MARSHALL Confirmed By:EFRAIN POOLE MD
[2017-03-24] MEDS: FOLIC ACID 1 MG TABLET (FP) PO SCH (09:31)
[2017-03-24] MEDS: VALSARTAN 160 MG TABLET (UD) PO SCH (09:31)
[2017-03-24] MEDS: PANTOPRAZOLE 40 MG TABLET (FP) PO SCH (09:32)
[2017-03-24] MEDS: CALCIUM (OYSTER SHELL) 500 MG TABLET (FP) PO SCH (09:32)
[2017-03-24] MEDS: MAGNESIUM OXIDE 400 MG TABLET (FP) PO SCH (09:32)
[2017-03-24] MEDS: CHOLECALCIFEROL (VITAMIN D3) 1,000 UNIT TABLET (FP) PO SCH (09:32)
[2017-03-24] MEDS: ASCORBIC ACID 500 MG TABLET (FP) PO SCH (09:32)
[2017-03-24] MEDS: amLODIPine BESYLATE 5 MG TABLET (FP) PO SCH (09:34)
[2017-03-24] MEDS ORDERED: CEFTRIAXONE 50 ML IVPB SCH (10:00)
--- NOTE | 2017-03-24 10:00 | HP ---
Admitting History and Physical - Primary Care Physician PCP: Florin Echevarria - Admission Chief Complaint: I had fevers History of Present Illness: Mrs Hilton is a very pleasant 76 year old female who came in for fevers. She had dental surgery approximately one month ago, and she did travel to [place] as well. However she has been doing well and is without complaint. On Friday she began to feel very weak and then noted she was feverish and had shaking chills. She took her temperature and it was 103.4 at home. She remained hydrated and rested, however she thought it was something viral and would resolve on its own. But as the weekend went on she continued to have fevers. Yesterday she checked her temperature at home and it was 103 again. Because of that she came in to the hospital. Aside from shaking fevers and feeling fatigued she had no other complaints. She denies lightheadedness, dizziness, passing out, pain in her mouth, foul taste or breath, swelling of her face or neck, chest pain, shortness of breath, coughing, abdominal pain, nausea, vomiting, diarrhea, difficulty or pain on urination, swelling, rash, furuncles, or any other concern. History Source: Patient Limitations to Obtaining History: No Limitations - Past Medical History TIRE SORTER: Yes: TIA Cardiovascular: Yes: HTN, Hyperlipdemia, Other (PFO) - Past Surgical History Past Surgical History: Yes: Vein Stripping/Ligation (LLE) - Smoking History Smoking history: Never smoked Have you smoked in the past 12 months: No - Alcohol/Substance Use Hx Alcohol Use: Yes (OCCASIONALLY) History of Substance Use: reports: None - Social History Usual Living Arrangement: Yes: With Spouse ADL: Independent History of Recent Travel: No Home Medications - Allergies Allergies/Adverse Reactions: Allergies Allergy/AdvReac Type Severity Reaction Status Date / Time No Known Allergies Allergy Verified 03/23/17 15:27 - Home Medications Home Medications: Ambulatory Orders Olmesartan Medoxomil [Benicar -] 20 mg PO DAILY 11/03/13 Amlodipine Besylate [Norvasc -] 5 mg PO DAILY #7 tablet 03/27/15 Atorvastatin Ca [Lipitor] 20 mg PO HS 10/29/16 Ascorbic Acid [Vitamin C -] 1,000 mg PO DAILY 02/28/17 Calcium Carbonate [Calcium] 600 mg PO DAILY 02/28/17 Cholecalciferol (Vitamin D3) [Vitamin D3] 2,000 unit PO DAILY 02/28/17 Folic Acid 400 mg PO DAILY 02/28/17 Magnesium 250 mg PO DAILY 02/28/17 Vitamin B Complex [B Complex] 1 each PO DAILY 02/28/17 Vitamin E 400 unit PO DAILY 02/28/17 Pantoprazole Sodium [Protonix] 40 mg PO DAILY 03/23/17 Family Disease History - Family Disease History Family Disease History: CA: Father, Mother Review of Systems Findings/Remarks: Full review of systems obtained, as per HPI and otherwise negative Physical Examination Vital Signs: Vital Signs Temperature 99.1 F 03/24/17 06:34 Pulse Rate 77 03/24/17 06:34 Respiratory Rate 18 03/24/17 08:51 Blood Pressure 93/38 03/24/17 06:34 O2 Sat by Pulse Oximetry (%) 97 03/24/17 08:51 Constitutional: Yes: Well Nourished, No Distress, Calm Cardiovascular: Yes: Regular Rate and Rhythm. No: Gallop, Murmur, Rub Respiratory: Yes: Regular, CTA Bilaterally. No: Rales, Rhonchi, Wheezes Gastrointestinal: Yes: Normal Bowel Sounds, Soft. No: Distention, Tenderness Extremities: Yes: WNL Edema: No Integumentary: Yes: WNL Labs: Laboratory Results - last 24 hr 03/23/17 03/23/17 03/23/17 16:00 16:13 16:13 WBC 9.0 D RBC 3.71 Hgb 11.7 Hct 33.8 MCV 90.9 MCHC 34.7 RDW 13.6 Plt Count 158 D MPV 8.1 Neutrophils % 86.7 H D Lymphocytes % 4.2 L D Monocytes % 8.8 Eosinophils % 0.1 D Basophils % 0.2 ESR INR 1.28 H PTT (Actin FS) 27.2 Sodium 135 L Potassium 3.6 Chloride 103 Carbon Dioxide 21 L Anion Gap 11 BUN 14 D Creatinine 1.1 D Creat Clearance w eGFR 48.42 Random Glucose 153 H D Lactic Acid Calcium 8.7 Total Bilirubin 0.8 D AST 35 D ALT 23 D Alkaline Phosphatase 62 C-Reactive Protein Total Protein 6.7 Albumin 3.8 Urine Color Urine Appearance Urine pH Ur Specific [place] Urine Protein Urine Glucose (UA) Urine Ketones Urine Blood Urine Nitrite Urine Bilirubin Urine Urobilinogen Ur Leukocyte Esterase Urine RBC Urine WBC Ur Epithelial Cells Urine Bacteria 03/23/17 03/23/17 03/23/17 16:13 16:13 16:13 WBC RBC Hgb Hct MCV MCHC RDW Plt Count MPV Neutrophils % Lymphocytes % Monocytes % Eosinophils % Basophils % ESR INR PTT (Actin FS) Sodium Potassium Chloride Carbon Dioxide Anion Gap BUN Creatinine Creat Clearance w eGFR Random Glucose Lactic Acid 2.0 Calcium Total Bilirubin AST ALT Alkaline Phosphatase C-Reactive Protein 12.9 H Total Protein Albumin Urine Color Yellow Urine Appearance Clear Urine pH 5.5 D Ur Specific [place] >= 1.030 H Urine Protein 2+ H Urine Glucose (UA) Negative Urine Ketones Negative Urine Blood 2+ H Urine Nitrite Negative Urine Bilirubin 1+ H Urine Urobilinogen 0.2 e.u/dl Ur Leukocyte Esterase 3+ H Urine RBC 4-6 Urine WBC 50-80 Ur Epithelial Cells 0-3 Urine Bacteria Few 03/23/17 03/23/17 16:13 18:12 WBC RBC Hgb Hct MCV MCHC RDW Plt Count MPV Neutrophils % Lymphocytes % Monocytes % Eosinophils % Basophils % ESR 98 H INR PTT (Actin FS) Sodium Potassium Chloride Carbon Dioxide Anion Gap BUN Creatinine Creat Clearance w eGFR Random Glucose Lactic Acid 0.8 Calcium Total Bilirubin AST ALT Alkaline Phosphatase C-Reactive Protein Total Protein Albumin Urine Color Urine Appearance Urine pH Ur Specific [place] Urine Protein Urine Glucose (UA) Urine Ketones Urine Blood Urine Nitrite Urine Bilirubin Urine Urobilinogen Ur Leukocyte Esterase Urine RBC Urine WBC Ur Epithelial Cells Urine Bacteria Imaging - Results Chest X-ray: Report Reviewed, Image Reviewed Problem List - Problems (1) Sepsis Assessment/Plan: -unclear source at the moment, growing gram negatives in her blood cultures -urinalysis positive for UTI, but also concentrated and possibly contaminated -started on rocephin in the ED, will continue -will consult Dr Nelson as expect will need broader spectrum until cultures result -hydration with IVF -monitor temperature Code(s): A41.9 - SEPSIS, UNSPECIFIED ORGANISM (2) Bacteremia Assessment/Plan: -unclear source -will obtain ECHO since has history of PFO Code(s): R78.81 - BACTEREMIA (3) UTI (urinary tract infection) Assessment/Plan: -possible source on bacteremia -follow up urine cultures -on rocephin, to be seen by ID Code(s): N39.0 - URINARY TRACT INFECTION, SITE NOT SPECIFIED (4) HLD (hyperlipidemia) Assessment/Plan: -continue statin Code(s): E78.5 - HYPERLIPIDEMIA, UNSPECIFIED (5) Hypertension Assessment/Plan: -continue norvasc and valsartan Code(s): I10 - ESSENTIAL (PRIMARY) HYPERTENSION
[2017-03-24] MEDS: SODIUM CHLORIDE 1,000 ML IV SCH (10:15)
--- NOTE | 2017-03-24 12:55 | CONSULT ---
Consult Consult Specialty:: infectious diseases Reason for Consultation:: fever,flank pain,not feeling well - History of Present Illness Chief Complaint: weakness fever History of Present Illness: 76 year old female admitted for fevers. .Patient was touring [place]. . On Friday she began to feel very weak and then noted she was feverish and had shaking chills. She took her temperature and it was 103.4 at home. She remained hydrated and rested, however she thought it was something viral and would resolve on its own. But as the weekend went on she continued to have fevers. Yesterday she checked her temperature at home and it was 103 again. Because of that she came in to the hospital. i spoke with her and her patient has not been feeling well from last one month and she has been weak denies any other symptoms but some discomfort in the left abd currently she feels better patient was worked up and found to have gram positive bacteremia - History Source History Provided By: Patient, Family Member Limitations to Obtaining History: No Limitations - Alcohol/Substance Use Hx Alcohol Use: Yes (OCCASIONALLY) - Smoking History Smoking history: Never smoked Have you smoked in the past 12 months: No Home Medications - Allergies Allergies/Adverse Reactions: Allergies Allergy/AdvReac Type Severity Reaction Status Date / Time No Known Allergies Allergy Verified 03/23/17 15:27 - Home Medications Home Medications: Ambulatory Orders Olmesartan Medoxomil [Benicar -] 20 mg PO DAILY 11/03/13 Amlodipine Besylate [Norvasc -] 5 mg PO DAILY #7 tablet 03/27/15 Atorvastatin Ca [Lipitor] 20 mg PO HS 10/29/16 Ascorbic Acid [Vitamin C -] 1,000 mg PO DAILY 02/28/17 Calcium Carbonate [Calcium] 600 mg PO DAILY 02/28/17 Cholecalciferol (Vitamin D3) [Vitamin D3] 2,000 unit PO DAILY 02/28/17 Folic Acid 400 mg PO DAILY 02/28/17 Magnesium 250 mg PO DAILY 02/28/17 Vitamin B Complex [B Complex] 1 each PO DAILY 02/28/17 Vitamin E 400 unit PO DAILY 02/28/17 Pantoprazole Sodium [Protonix] 40 mg PO DAILY 03/23/17 Review of Systems - Review of Systems Constitutional: reports: Chills, Fever Eyes: reports: No Symptoms HENT: reports: No Symptoms Neck: reports: No Symptoms Cardiovascular: reports: No Symptoms Respiratory: reports: No Symptoms Gastrointestinal: reports: No Symptoms Genitourinary: reports: No Symptoms Musculoskeletal: reports: No Symptoms Integumentary: reports: No Symptoms Neurological: reports: No Symptoms Endocrine: reports: No Symptoms Hematology/Lymphatic: reports: No Symptoms Psychiatric: reports: No Symptoms Physical Exam Vital Signs: Vital Signs Temperature 99.1 F 03/24/17 06:34 Pulse Rate 74 03/24/17 11:23 Respiratory Rate 18 03/24/17 08:51 Blood Pressure 93/38 03/24/17 06:34 O2 Sat by Pulse Oximetry (%) 95 03/24/17 11:23 Constitutional: Yes: Well Nourished, Calm, Mild Distress Eyes: Yes: Conjunctiva Clear HENT: Yes: Atraumatic, Normocephalic Neck: Yes: Supple, Trachea Midline Cardiovascular: Yes: Regular Rate and Rhythm Respiratory: Yes: Regular, CTA Bilaterally Gastrointestinal: Yes: Soft, Tenderness (on the left upper abd) Musculoskeletal: Yes: WNL Extremities: Yes: WNL Neurological: Yes: Alert, Oriented Psychiatric: Yes: Alert Imaging - Results Chest X-ray: Report Reviewed, Image Reviewed Assessment/Plan Problem List - Problems (1) Sepsis Code(s): A41.9 - SEPSIS, UNSPECIFIED ORGANISM (2) Bacteremia Code(s): R78.81 - BACTEREMIA (3) UTI (urinary tract infection) Code(s): N39.0 - URINARY TRACT INFECTION, SITE NOT SPECIFIED (4) HLD (hyperlipidemia) Code(s): E78.5 - HYPERLIPIDEMIA, UNSPECIFIED (5) Hypertension Code(s): I10 - ESSENTIAL (PRIMARY) HYPERTENSION 6 pyelonephritis after looking at the patient i have a strong suspicion that patient has pyelonephritis and that is source i am going to order stat ct scan of the abdomen to r/o pyelo plan stat ct scan of the abdomen will stop ceftriaxone will start on zosyn very close watch on fevers await for identification of bacteria
[2017-03-24] MEDS: PIPERACILLIN/TAZOB 3.375 GM 50 ML IVPB SCH ×2 (13:46→18:19)
[2017-03-24] MEDS: ATORVASTATIN CA 20 MG TABLET (FP) PO SCH (21:52)
[2017-03-25] MEDS: PIPERACILLIN/TAZOB 3.375 GM 50 ML IVPB SCH ×3 (01:13→17:29)
[2017-03-25 08:57] LABS: ANION GAP 8 (8-16); CALCIUM 8.3 mg/dl (8.4-10.2); CO2 24 mmol/L (22-28); GLUCOSE,RANDOM 105 mg/dl (74-106); PHOSPHOROUS 3.1 mg/dl (2.5-4.6)
[2017-03-25 09:05] LABS: BASOPHIL 0.6 % (0-2.0); EOSINOPHIL 3.3 % (0-4.5); MCH 30.9 pg (25.7-33.7); MCHC 33.5 g/dl (32.0-36.0); MEAN CELL VOLUME 92.1 fl (80-96); MEAN PLT VOLUME 8.9 fl (7.5-11.1); NEUTROPHILS 70.7 % (42.8-82.8); PLATELET COUNT 160 K/MM3 (134-434); RDW 14.1 % (11.6-15.6); WHITE BLOOD COUNT 6.4 K/mm3 (4.0-10.8)
[2017-03-25] MEDS: SODIUM CHLORIDE 1,000 ML IV SCH (10:00)
--- NOTE | 2017-03-25 10:17 | PN ---
Progress Note, Physician History of Present Illness: patient feels much better still fever got a call from radiology patient has pyelo patient improving - Current Medication List Current Medications: Active Medications Acetaminophen (Tylenol -) 1,000 mg PO Q6H PRN PRN Reason: FEVER OR PAIN Last Admin: 03/24/17 22:44 Dose: 1,000 mg Amlodipine Besylate (Norvasc -) 5 mg PO DAILY [facility] Last Admin: 03/24/17 09:34 Dose: 5 mg Ascorbic Acid (Vitamin C -) 1,000 mg PO DAILY [facility] Last Admin: 03/24/17 09:32 Dose: 1,000 mg Atorvastatin Calcium (Lipitor -) 20 mg PO HS [facility] Last Admin: 03/24/17 21:52 Dose: 20 mg Calcium Carbonate (Os-Jose Alejandro 500mg -) 500 mg PO DAILY [facility] Last Admin: 03/24/17 09:32 Dose: 500 mg Cholecalciferol (Vitamin D3 -) 2,000 unit PO DAILY [facility] Last Admin: 03/24/17 09:32 Dose: 2,000 unit Folic Acid (Folic Acid -) 0.5 mg PO DAILY [facility] Last Admin: 03/24/17 09:31 Dose: 0.5 mg Sodium Chloride (Normal Saline -) 1,000 mls @ 75 mls/hr IV ASDIR [facility] Last Admin: 03/24/17 10:15 Dose: 75 mls/hr Piperacillin Sod/Tazobactam Sod (Zosyn 3.375gm Ivpb (Pre-Docked)) 50 mls @ 100 mls/hr IVPB Q8H-IV RAMON PRN Reason: Protocol Last Admin: 03/25/17 01:13 Dose: 100 mls/hr Magnesium Oxide (Mag-Ox -) 400 mg PO DAILY [facility] Last Admin: 03/24/17 09:32 Dose: 400 mg Pantoprazole Sodium (Protonix -) 40 mg PO DAILY [facility] Last Admin: 03/24/17 09:32 Dose: 40 mg Valsartan (Diovan -) 160 mg PO DAILY [facility] Last Admin: 03/24/17 09:31 Dose: 160 mg - Objective Vital Signs: Vital Signs Temperature 98.8 F 03/25/17 06:57 Pulse Rate 83 03/25/17 06:57 Respiratory Rate 16 03/25/17 09:00 Blood Pressure 91/42 03/25/17 06:57 O2 Sat by Pulse Oximetry (%) 95 03/25/17 09:00 Constitutional: Yes: No Distress, Calm Cardiovascular: Yes: Regular Rate and Rhythm Respiratory: Yes: Regular, CTA Bilaterally Gastrointestinal: Yes: Normal Bowel Sounds, Soft, Other Musculoskeletal: Yes: WNL Extremities: Yes: WNL Neurological: Yes: Alert, Oriented Psychiatric: Yes: Alert, Oriented Labs: CBC, BMP 03/25/17 07:30 03/25/17 07:30 INR, PTT INR 1.28 (0.82-1.09) H 03/23/17 16:13 - ....Imaging Cat Scan: Report Reviewed, Image Reviewed Assessment/Plan Problem List - Problems (1) Sepsis Code(s): A41.9 - SEPSIS, UNSPECIFIED ORGANISM (2) Bacteremia Code(s): R78.81 - BACTEREMIA (3) UTI (urinary tract infection) Code(s): N39.0 - URINARY TRACT INFECTION, SITE NOT SPECIFIED (4) HLD (hyperlipidemia) Code(s): E78.5 - HYPERLIPIDEMIA, UNSPECIFIED (5) Hypertension Code(s): I10 - ESSENTIAL (PRIMARY) HYPERTENSION 6 pyelonephritis after looking at the patient i have a strong suspicion that patient has pyelonephritis and that is source i am going to order stat ct scan of the abdomen to r/o pyelo plan cx results noted ct scan seen and noted continue abx hydration
[2017-03-25] MEDS: MAGNESIUM OXIDE 400 MG TABLET (FP) PO SCH (10:30)
[2017-03-25] MEDS: PANTOPRAZOLE 40 MG TABLET (FP) PO SCH (10:30)
[2017-03-25] MEDS: FOLIC ACID 1 MG TABLET (FP) PO SCH (10:31)
[2017-03-25] MEDS: CALCIUM (OYSTER SHELL) 500 MG TABLET (FP) PO SCH (10:31)
[2017-03-25] MEDS: CHOLECALCIFEROL (VITAMIN D3) 1,000 UNIT TABLET (FP) PO SCH (10:31)
[2017-03-25] MEDS: ASCORBIC ACID 500 MG TABLET (FP) PO SCH (10:31)
[2017-03-25] MEDS: VALSARTAN 160 MG TABLET (UD) PO SCH (10:32)
[2017-03-25] MEDS: amLODIPine BESYLATE 5 MG TABLET (FP) PO SCH (10:33)
--- NOTE | 2017-03-25 10:58 | PN ---
Progress Note, Physician History of Present Illness: Feeling OK this morning. Had fever 101 yesterday. - Current Medication List Current Medications: Active Medications Acetaminophen (Tylenol -) 1,000 mg PO Q6H PRN PRN Reason: FEVER OR PAIN Last Admin: 03/24/17 22:44 Dose: 1,000 mg Amlodipine Besylate (Norvasc -) 5 mg PO DAILY [facility] Last Admin: 03/25/17 10:33 Dose: Not Given Ascorbic Acid (Vitamin C -) 1,000 mg PO DAILY [facility] Last Admin: 03/25/17 10:31 Dose: 1,000 mg Atorvastatin Calcium (Lipitor -) 20 mg PO HS [facility] Last Admin: 03/24/17 21:52 Dose: 20 mg Calcium Carbonate (Os-Jose Alejandro 500mg -) 500 mg PO DAILY [facility] Last Admin: 03/25/17 10:31 Dose: 500 mg Cholecalciferol (Vitamin D3 -) 2,000 unit PO DAILY [facility] Last Admin: 03/25/17 10:31 Dose: 2,000 unit Folic Acid (Folic Acid -) 0.5 mg PO DAILY [facility] Last Admin: 03/25/17 10:31 Dose: 0.5 mg Sodium Chloride (Normal Saline -) 1,000 mls @ 75 mls/hr IV ASDIR [facility] Last Admin: 03/24/17 10:15 Dose: 75 mls/hr Piperacillin Sod/Tazobactam Sod (Zosyn 3.375gm Ivpb (Pre-Docked)) 50 mls @ 100 mls/hr IVPB Q8H-IV RAMON PRN Reason: Protocol Last Admin: 03/25/17 10:30 Dose: 100 mls/hr Magnesium Oxide (Mag-Ox -) 400 mg PO DAILY [facility] Last Admin: 03/25/17 10:30 Dose: 400 mg Pantoprazole Sodium (Protonix -) 40 mg PO DAILY [facility] Last Admin: 03/25/17 10:30 Dose: 40 mg Valsartan (Diovan -) 160 mg PO DAILY [facility] Last Admin: 03/25/17 10:32 Dose: Not Given - Objective Vital Signs: Vital Signs Temperature 98.8 F 03/25/17 06:57 Pulse Rate 83 03/25/17 06:57 Respiratory Rate 16 03/25/17 09:00 Blood Pressure 91/42 03/25/17 06:57 O2 Sat by Pulse Oximetry (%) 95 03/25/17 09:00 Constitutional: Yes: No Distress, Calm Neck: Yes: Supple, Trachea Midline Cardiovascular: Yes: Regular Rate and Rhythm, S1, S2. No: Murmur Respiratory: Yes: Regular, CTA Bilaterally. No: Rales, Rhonchi, Wheezes Gastrointestinal: Yes: Normal Bowel Sounds, Soft. No: Distention, Tenderness Edema: No Labs: CBC, BMP 03/25/17 07:30 03/25/17 07:30 INR, PTT INR 1.28 (0.82-1.09) H 03/23/17 16:13 Assessment/Plan Current Active Problems Bacteremia (Acute) Right Pyelonephritis Sepsis (Acute) UTI (urinary tract infection) (Acute) PVD, s/p Left leg vein stripping -cont abx -urology consult
[2017-03-25] MEDS: ATORVASTATIN CA 20 MG TABLET (FP) PO SCH (22:01)
[2017-03-26] MEDS: PIPERACILLIN/TAZOB 3.375 GM 50 ML IVPB SCH ×3 (01:36→17:36)
[2017-03-26] MEDS: ACETAMINOPHEN 500 MG TABLET (FP) PO PRN (06:19)
[2017-03-26 08:38] LABS: BASOPHIL 0.6 % (0-2.0); EOSINOPHIL 3.7 % (0-4.5); MCHC 33.3 g/dl (32.0-36.0); MEAN CELL VOLUME 92.8 fl (80-96); MEAN PLT VOLUME 7.8 fl (7.5-11.1); PLATELET COUNT 194 K/MM3 (134-434); WHITE BLOOD COUNT 7.2 K/mm3 (4.0-10.8)
[2017-03-26 08:58] LABS: ALBUMIN 3.1 g/dl (3.5-5.0); ALK PHOS 85 U/L (32-92); ANION GAP 8 (8-16); BILIRUBIN,TOTAL 0.5 mg/dl (0.2-1.0); CALCIUM 8.6 mg/dl (8.4-10.2); CO2 23 mmol/L (22-28); CREATININE 0.9 mg/dl (0.6-1.3); GLUCOSE,RANDOM 123 mg/dl (74-106); SGOT/AST 49 U/L (10-42); SGPT/ALT 47 U/L (10-40); TOT PROT 5.8 g/dl (6.4-8.3)
--- NOTE | 2017-03-26 10:06 | PN ---
Progress Note, Physician Chief Complaint: Mrs Hilton says she is feeling better, but she is having diarrhea. She also states that she is having LLE pain when lying down trying to raise her leg off the bed, but is not having trouble or pain on walking. Not short of breath but required oxygen overnight. No cp or n/v. - Current Medication List Current Medications: Active Medications Acetaminophen (Tylenol -) 1,000 mg PO Q6H PRN PRN Reason: FEVER OR PAIN Last Admin: 03/26/17 06:19 Dose: 1,000 mg Amlodipine Besylate (Norvasc -) 5 mg PO DAILY [facility] Last Admin: 03/25/17 10:33 Dose: Not Given Ascorbic Acid (Vitamin C -) 1,000 mg PO DAILY [facility] Last Admin: 03/25/17 10:31 Dose: 1,000 mg Atorvastatin Calcium (Lipitor -) 20 mg PO HS [facility] Last Admin: 03/25/17 22:01 Dose: 20 mg Calcium Carbonate (Os-Jose Alejandro 500mg -) 500 mg PO DAILY [facility] Last Admin: 03/25/17 10:31 Dose: 500 mg Cholecalciferol (Vitamin D3 -) 2,000 unit PO DAILY [facility] Last Admin: 03/25/17 10:31 Dose: 2,000 unit Folic Acid (Folic Acid -) 0.5 mg PO DAILY [facility] Last Admin: 03/25/17 10:31 Dose: 0.5 mg Sodium Chloride (Normal Saline -) 1,000 mls @ 75 mls/hr IV ASDIR [facility] Last Admin: 03/25/17 10:00 Dose: 75 mls/hr Piperacillin Sod/Tazobactam Sod (Zosyn 3.375gm Ivpb (Pre-Docked)) 50 mls @ 100 mls/hr IVPB Q8H-IV RAMON PRN Reason: Protocol Last Admin: 03/26/17 01:36 Dose: 100 mls/hr Magnesium Oxide (Mag-Ox -) 400 mg PO DAILY [facility] Last Admin: 03/25/17 10:30 Dose: 400 mg Pantoprazole Sodium (Protonix -) 40 mg PO DAILY [facility] Last Admin: 03/25/17 10:30 Dose: 40 mg Valsartan (Diovan -) 160 mg PO DAILY [facility] Last Admin: 03/25/17 10:32 Dose: Not Given - Objective Vital Signs: Vital Signs Temperature 99.5 F 03/26/17 06:00 Pulse Rate 85 03/26/17 06:00 Respiratory Rate 19 03/26/17 06:00 Blood Pressure 113/37 03/26/17 06:00 O2 Sat by Pulse Oximetry (%) 91 L 03/26/17 06:00 Constitutional: Yes: Well Nourished, No Distress, Calm Cardiovascular: Yes: Regular Rate and Rhythm. No: Gallop, Murmur, Rub Respiratory: Yes: Regular, On Nasal O2, Rhonchi, Wheezes. No: CTA Bilaterally, Rales Gastrointestinal: Yes: Normal Bowel Sounds, Soft. No: Distention, Tenderness Extremities: Yes: WNL Edema: No Labs: CBC, BMP 03/26/17 08:00 03/26/17 08:00 INR, PTT INR 1.28 (0.82-1.09) H 03/23/17 16:13 Problem List - Problems (1) Sepsis Code(s): A41.9 - SEPSIS, UNSPECIFIED ORGANISM (2) Bacteremia Code(s): R78.81 - BACTEREMIA (3) UTI (urinary tract infection) Code(s): N39.0 - URINARY TRACT INFECTION, SITE NOT SPECIFIED (4) HLD (hyperlipidemia) Code(s): E78.5 - HYPERLIPIDEMIA, UNSPECIFIED (5) Hypertension Code(s): I10 - ESSENTIAL (PRIMARY) HYPERTENSION Assessment/Plan (1) Sepsis Assessment/Plan: -secondary to UTI -improving, afebrile -appreciate ID assistance, continue zosyn -follow up ECHO Code(s): A41.9 - SEPSIS, UNSPECIFIED ORGANISM (2) Bacteremia Assessment/Plan: -secondary to UTI -growing e.coli resistant to ampicillin/unasyn -continue zosyn per ID Code(s): R78.81 - BACTEREMIA (3) UTI (urinary tract infection) Assessment/Plan: -as above Code(s): N39.0 - URINARY TRACT INFECTION, SITE NOT SPECIFIED (4) HLD (hyperlipidemia) Assessment/Plan: -continue statin Code(s): E78.5 - HYPERLIPIDEMIA, UNSPECIFIED (5) Hypertension Assessment/Plan: -continue norvasc and valsartan Code(s): I10 - ESSENTIAL (PRIMARY) HYPERTENSION (6) Diarrhea -suspect antibiotic induced -however will check for c. diff -add lactobacillus (7) Hypoxia -lowest recording 91% -suspect secondary to atelecatsis considering lung exam -I/S -no current need for chest x-ray but will obtain if does not improve (8) Leg pain -appears musculoskeletal -PT consult
[2017-03-26] MEDS: CALCIUM (OYSTER SHELL) 500 MG TABLET (FP) PO SCH (11:07)
[2017-03-26] MEDS: CHOLECALCIFEROL (VITAMIN D3) 1,000 UNIT TABLET (FP) PO SCH (11:08)
[2017-03-26] MEDS: VALSARTAN 160 MG TABLET (UD) PO SCH (11:08)
[2017-03-26] MEDS: FOLIC ACID 1 MG TABLET (FP) PO SCH (11:08)
[2017-03-26] MEDS: MAGNESIUM OXIDE 400 MG TABLET (FP) PO SCH (11:08)
[2017-03-26] MEDS: amLODIPine BESYLATE 5 MG TABLET (FP) PO SCH (11:09)
[2017-03-26] MEDS: ASCORBIC ACID 500 MG TABLET (FP) PO SCH (11:09)
[2017-03-26] MEDS: PANTOPRAZOLE 40 MG TABLET (FP) PO SCH (11:09)
[2017-03-26] MEDS: SODIUM CHLORIDE 1,000 ML IV SCH (11:11)
[2017-03-26] MEDS: LACTOBACILLUS ACIDOPHILUS 1 EACH TAB (FP) PO SCH (11:11)
[2017-03-26] MEDS: ATORVASTATIN CA 20 MG TABLET (FP) PO SCH (21:31)
[2017-03-27 00:06] LABS: BABESIA MICROTI ANTIBODY IGG <1:10 (Neg:<1:10)
[2017-03-27] MEDS: PIPERACILLIN/TAZOB 3.375 GM 50 ML IVPB SCH ×2 (01:02→09:17)
[2017-03-27 08:10] LABS: BASOPHIL 0.6 % (0-2.0); EOSINOPHIL 5.3 % (0-4.5); MEAN CELL VOLUME 91.2 fl (80-96); MEAN PLT VOLUME 7.8 fl (7.5-11.1); NEUTROPHILS 68.9 % (42.8-82.8); PLATELET COUNT 222 K/MM3 (134-434); RDW 13.8 % (11.6-15.6)
[2017-03-27 08:28] LABS: ANION GAP 7 (8-16); CALCIUM 8.4 mg/dl (8.4-10.2); CO2 24 mmol/L (22-28); CREATININE 0.9 mg/dl (0.6-1.3); GLUCOSE,RANDOM 105 mg/dl (74-106); MAGNESIUM 1.9 mg/dL (1.8-2.4); PHOSPHOROUS 3.4 mg/dl (2.5-4.6)
[2017-03-27] MEDS: LACTOBACILLUS ACIDOPHILUS 1 EACH TAB (FP) PO SCH (09:14)
[2017-03-27] MEDS: MAGNESIUM OXIDE 400 MG TABLET (FP) PO SCH (09:15)
[2017-03-27] MEDS: amLODIPine BESYLATE 5 MG TABLET (FP) PO SCH (09:15)
[2017-03-27] MEDS: VALSARTAN 160 MG TABLET (UD) PO SCH (09:15)
[2017-03-27] MEDS: FOLIC ACID 1 MG TABLET (FP) PO SCH (09:15)
[2017-03-27] MEDS: PANTOPRAZOLE 40 MG TABLET (FP) PO SCH (09:16)
[2017-03-27] MEDS: CHOLECALCIFEROL (VITAMIN D3) 1,000 UNIT TABLET (FP) PO SCH (09:16)
[2017-03-27] MEDS: ASCORBIC ACID 500 MG TABLET (FP) PO SCH (09:16)
[2017-03-27] MEDS: CALCIUM (OYSTER SHELL) 500 MG TABLET (FP) PO SCH (09:16)
--- NOTE | 2017-03-27 09:31 | CON.GU ---
Consult Consult Specialty:: urology Referred by:: Jennifer Reason for Consultation:: edematous kidney, pyelonephritis - History of Present Illness Chief Complaint: renal colic, pyelonephritis History of Present Illness: 76 yo female describes approx 2 months of left renal colic. She is admitted on 03/23/17 with leukocytosis, fever, and pyelonephritis. Blood and Urine cultures are positive with E. Coli, mostly sensitive. patient denies prior history of UTIs, and denies any current LUTS. Her CT has edema of the kidney, but no abscess, no obstruction, no stones. She is responding to IV ABX> - History Source History Provided By: Patient, Medical Record Limitations to Obtaining History: No Limitations - Past Medical History [employer] REPA[employer]ER: Yes: TIA Cardio/Vascular: Yes: HTN, Hyperlipdemia, Other (PFO) Renal/: Yes: Renal Calculi. No: UTI - Past Surgical History Past Surgical History: Yes: Vein Stripping/Ligation (LLE) - Alcohol/Substance Use Hx Alcohol Use: Yes (OCCASIONALLY) History of Substance Use: reports: None - Smoking History Smoking history: Never smoked Have you smoked in the past 12 months: No - Social History ADL: Independent History of Recent Travel: No Home Medications - Allergies Allergies/Adverse Reactions: Allergies Allergy/AdvReac Type Severity Reaction Status Date / Time No Known Allergies Allergy Verified 03/23/17 15:27 - Home Medications Home Medications: Ambulatory Orders Olmesartan Medoxomil [Benicar -] 20 mg PO DAILY 11/03/13 Amlodipine Besylate [Norvasc -] 5 mg PO DAILY #7 tablet 03/27/15 Atorvastatin Ca [Lipitor] 20 mg PO HS 10/29/16 Ascorbic Acid [Vitamin C -] 1,000 mg PO DAILY 02/28/17 Calcium Carbonate [Calcium] 600 mg PO DAILY 02/28/17 Cholecalciferol (Vitamin D3) [Vitamin D3] 2,000 unit PO DAILY 02/28/17 Folic Acid 400 mg PO DAILY 02/28/17 Magnesium 250 mg PO DAILY 02/28/17 Vitamin B Complex [B Complex] 1 each PO DAILY 02/28/17 Vitamin E 400 unit PO DAILY 02/28/17 Pantoprazole Sodium [Protonix] 40 mg PO DAILY 03/23/17 Family Disease History - Family Disease History Family Disease History: CA: Father, Mother Review of Systems - Review of Systems Constitutional: denies: Chills, Fever Genitourinary: reports: Flank Pain. denies: Frequency, Hematuria, Incontinence Physical Exam- Vital Signs: Vital Signs Temperature 99.9 F H 03/27/17 06:22 Pulse Rate 84 03/27/17 06:22 Respiratory Rate 18 03/27/17 06:22 Blood Pressure 119/54 03/27/17 06:22 O2 Sat by Pulse Oximetry (%) 96 03/27/17 07:52 Constitutional: Yes: Well Nourished, No Distress, Calm Renal/: No: Bladder Distention, CVA Tenderness - Left, CVA Tenderness - Right , Ramos Present, Hematuria, Incontinence Labs: CBC, BMP 03/27/17 07:34 03/27/17 07:34 Imaging - Results Cat Scan: Report Reviewed Problem List - Problems (1) Pyelonephritis due to Escherichia coli Assessment/Plan: responding to meds. No stones or obstruction. recommend outpatient follow up with repeat culture and US at the time. Denies recurrent UTIs. No surgical intervention needed. Code(s): N12 - TUBULO-INTERSTITIAL NEPHRITIS, NOT SPCF ACUTE OR CHRONIC B96.20 - UNSP ESCHERICHIA COLI THE CAUSE OF DISEASES CLASSD ELSWHR
--- NOTE | 2017-03-27 09:57 | PN ---
Progress Note, Physician Chief Complaint: Mrs Hilton says she is feeling better, is no longer having leg pain. No cp, sob , n/v but still requiring oxygen. - Current Medication List Current Medications: Active Medications Acetaminophen (Tylenol -) 1,000 mg PO Q6H PRN PRN Reason: FEVER OR PAIN Last Admin: 03/26/17 06:19 Dose: 1,000 mg Amlodipine Besylate (Norvasc -) 5 mg PO DAILY [facility] Last Admin: 03/27/17 09:15 Dose: 5 mg Ascorbic Acid (Vitamin C -) 1,000 mg PO DAILY [facility] Last Admin: 03/27/17 09:16 Dose: 1,000 mg Atorvastatin Calcium (Lipitor -) 20 mg PO HS [facility] Last Admin: 03/26/17 21:31 Dose: 20 mg Calcium Carbonate (Os-Jose Alejandro 500mg -) 500 mg PO DAILY [facility] Last Admin: 03/27/17 09:16 Dose: 500 mg Cholecalciferol (Vitamin D3 -) 2,000 unit PO DAILY [facility] Last Admin: 03/27/17 09:16 Dose: 2,000 unit Folic Acid (Folic Acid -) 0.5 mg PO DAILY [facility] Last Admin: 03/27/17 09:15 Dose: 0.5 mg Sodium Chloride (Normal Saline -) 1,000 mls @ 75 mls/hr IV ASDIR [facility] Last Admin: 03/26/17 11:11 Dose: 75 mls/hr Piperacillin Sod/Tazobactam Sod (Zosyn 3.375gm Ivpb (Pre-Docked)) 50 mls @ 100 mls/hr IVPB Q8H-IV RAMON PRN Reason: Protocol Last Admin: 03/27/17 09:17 Dose: 100 mls/hr Lactobacillus Acidophilus (Bacid -) 1 tab PO DAILY [facility] Last Admin: 03/27/17 09:14 Dose: 1 tab Magnesium Oxide (Mag-Ox -) 400 mg PO DAILY [facility] Last Admin: 03/27/17 09:15 Dose: 400 mg Pantoprazole Sodium (Protonix -) 40 mg PO DAILY [facility] Last Admin: 03/27/17 09:16 Dose: 40 mg Valsartan (Diovan -) 160 mg PO DAILY [facility] Last Admin: 03/27/17 09:15 Dose: 160 mg - Objective Vital Signs: Vital Signs Temperature 99.9 F H 03/27/17 06:22 Pulse Rate 84 03/27/17 06:22 Respiratory Rate 18 03/27/17 06:22 Blood Pressure 119/54 03/27/17 06:22 O2 Sat by Pulse Oximetry (%) 96 03/27/17 07:52 Constitutional: Yes: Well Nourished, No Distress, Calm Cardiovascular: Yes: Regular Rate and Rhythm. No: Gallop, Murmur, Rub Respiratory: Yes: Regular, CTA Bilaterally. No: Rales, Rhonchi, Wheezes Gastrointestinal: Yes: Normal Bowel Sounds, Soft. No: Distention, Tenderness Extremities: Yes: WNL Edema: No Labs: CBC, BMP 03/27/17 07:34 03/27/17 07:34 INR, PTT INR 1.28 (0.82-1.09) H 03/23/17 16:13 Problem List - Problems (1) Sepsis Code(s): A41.9 - SEPSIS, UNSPECIFIED ORGANISM (2) Bacteremia Code(s): R78.81 - BACTEREMIA (3) UTI (urinary tract infection) Code(s): N39.0 - URINARY TRACT INFECTION, SITE NOT SPECIFIED (4) HLD (hyperlipidemia) Code(s): E78.5 - HYPERLIPIDEMIA, UNSPECIFIED (5) Hypertension Code(s): I10 - ESSENTIAL (PRIMARY) HYPERTENSION Assessment/Plan (1) Sepsis Assessment/Plan: -secondary to UTI -improving, afebrile -appreciate ID assistance, continue zosyn -follow up ECHO, read pending Code(s): A41.9 - SEPSIS, UNSPECIFIED ORGANISM (2) Bacteremia Assessment/Plan: -secondary to UTI -growing e.coli resistant to ampicillin/unasyn -continue zosyn per ID Code(s): R78.81 - BACTEREMIA (3) UTI (urinary tract infection) Assessment/Plan: -as above Code(s): N39.0 - URINARY TRACT INFECTION, SITE NOT SPECIFIED (4) HLD (hyperlipidemia) Assessment/Plan: -continue statin Code(s): E78.5 - HYPERLIPIDEMIA, UNSPECIFIED (5) Hypertension Assessment/Plan: -continue norvasc and valsartan Code(s): I10 - ESSENTIAL (PRIMARY) HYPERTENSION (6) Diarrhea -c. diff negative -antibiotic induced diarrhea -continue lactobacillus (7) Hypoxia -lung exam sounding clear today -patient says oxygen saturation gets down to 83%, however not recorded -continue I/S, secondary to atelectasis -monitor, does not require home oxygen (8) Leg pain -resolved
--- NOTE | 2017-03-27 13:49 | PN ---
Progress Note, Physician History of Present Illness: continues to improve has been afebrile feels her energy is coming back - Current Medication List Current Medications: Active Medications Acetaminophen (Tylenol -) 1,000 mg PO Q6H PRN PRN Reason: FEVER OR PAIN Last Admin: 03/26/17 06:19 Dose: 1,000 mg Amlodipine Besylate (Norvasc -) 5 mg PO DAILY [facility] Last Admin: 03/27/17 09:15 Dose: 5 mg Ascorbic Acid (Vitamin C -) 1,000 mg PO DAILY [facility] Last Admin: 03/27/17 09:16 Dose: 1,000 mg Atorvastatin Calcium (Lipitor -) 20 mg PO HS [facility] Last Admin: 03/26/17 21:31 Dose: 20 mg Calcium Carbonate (Os-Jose Alejandro 500mg -) 500 mg PO DAILY [facility] Last Admin: 03/27/17 09:16 Dose: 500 mg Cholecalciferol (Vitamin D3 -) 2,000 unit PO DAILY [facility] Last Admin: 03/27/17 09:16 Dose: 2,000 unit Folic Acid (Folic Acid -) 0.5 mg PO DAILY [facility] Last Admin: 03/27/17 09:15 Dose: 0.5 mg Sodium Chloride (Normal Saline -) 1,000 mls @ 75 mls/hr IV ASDIR [facility] Last Admin: 03/26/17 11:11 Dose: 75 mls/hr Piperacillin Sod/Tazobactam Sod (Zosyn 3.375gm Ivpb (Pre-Docked)) 50 mls @ 100 mls/hr IVPB Q8H-IV RAMON PRN Reason: Protocol Last Admin: 03/27/17 09:17 Dose: 100 mls/hr Lactobacillus Acidophilus (Bacid -) 1 tab PO DAILY [facility] Last Admin: 03/27/17 09:14 Dose: 1 tab Magnesium Oxide (Mag-Ox -) 400 mg PO DAILY [facility] Last Admin: 03/27/17 09:15 Dose: 400 mg Pantoprazole Sodium (Protonix -) 40 mg PO DAILY [facility] Last Admin: 03/27/17 09:16 Dose: 40 mg Valsartan (Diovan -) 160 mg PO DAILY [facility] Last Admin: 03/27/17 09:15 Dose: 160 mg - Objective Vital Signs: Vital Signs Temperature 99.9 F H 03/27/17 06:22 Pulse Rate 84 03/27/17 06:22 Respiratory Rate 18 03/27/17 06:22 Blood Pressure 119/54 03/27/17 06:22 O2 Sat by Pulse Oximetry (%) 96 03/27/17 07:52 Constitutional: Yes: No Distress, Calm Cardiovascular: Yes: Regular Rate and Rhythm Respiratory: Yes: Regular, CTA Bilaterally Gastrointestinal: Yes: Normal Bowel Sounds, Soft Musculoskeletal: Yes: WNL Extremities: Yes: WNL Neurological: Yes: Alert, Oriented Psychiatric: Yes: Alert, Oriented Labs: CBC, BMP 03/27/17 07:34 03/27/17 07:34 INR, PTT INR 1.28 (0.82-1.09) H 03/23/17 16:13 Assessment/Plan Problem List - Problems (1) Sepsis Code(s): A41.9 - SEPSIS, UNSPECIFIED ORGANISM (2) Bacteremia Code(s): R78.81 - BACTEREMIA (3) UTI (urinary tract infection) Code(s): N39.0 - URINARY TRACT INFECTION, SITE NOT SPECIFIED (4) HLD (hyperlipidemia) Code(s): E78.5 - HYPERLIPIDEMIA, UNSPECIFIED (5) Hypertension Code(s): I10 - ESSENTIAL (PRIMARY) HYPERTENSION 6 pyelonephritis plan cx results noted ct scan seen and noted continue abx rest as per primary team
--- NOTE | 2017-03-27 17:41 | PN ---
Progress Note, Physician History of Present Illness: patient had episodes of breathless ness yesterday o2 dropped low had to be placed on o2 currently normal o2 sat leg swollen left side patient currently feeling better patient is off of nasal cannula - Current Medication List Current Medications: Active Medications Acetaminophen (Tylenol -) 1,000 mg PO Q6H PRN PRN Reason: FEVER OR PAIN Last Admin: 03/26/17 06:19 Dose: 1,000 mg Amlodipine Besylate (Norvasc -) 5 mg PO DAILY [facility] Last Admin: 03/27/17 09:15 Dose: 5 mg Ascorbic Acid (Vitamin C -) 1,000 mg PO DAILY [facility] Last Admin: 03/27/17 09:16 Dose: 1,000 mg Atorvastatin Calcium (Lipitor -) 20 mg PO HS [facility] Last Admin: 03/26/17 21:31 Dose: 20 mg Calcium Carbonate (Os-Jose Alejandro 500mg -) 500 mg PO DAILY [facility] Last Admin: 03/27/17 09:16 Dose: 500 mg Cholecalciferol (Vitamin D3 -) 2,000 unit PO DAILY [facility] Last Admin: 03/27/17 09:16 Dose: 2,000 unit Folic Acid (Folic Acid -) 0.5 mg PO DAILY [facility] Last Admin: 03/27/17 09:15 Dose: 0.5 mg Sodium Chloride (Normal Saline -) 1,000 mls @ 75 mls/hr IV ASDIR [facility] Last Admin: 03/26/17 11:11 Dose: 75 mls/hr Piperacillin Sod/Tazobactam Sod (Zosyn 3.375gm Ivpb (Pre-Docked)) 50 mls @ 100 mls/hr IVPB Q8H-IV RAMON PRN Reason: Protocol Last Admin: 03/27/17 09:17 Dose: 100 mls/hr Lactobacillus Acidophilus (Bacid -) 1 tab PO DAILY [facility] Last Admin: 03/27/17 09:14 Dose: 1 tab Magnesium Oxide (Mag-Ox -) 400 mg PO DAILY [facility] Last Admin: 03/27/17 09:15 Dose: 400 mg Pantoprazole Sodium (Protonix -) 40 mg PO DAILY [facility] Last Admin: 03/27/17 09:16 Dose: 40 mg Valsartan (Diovan -) 160 mg PO DAILY [facility] Last Admin: 03/27/17 09:15 Dose: 160 mg - Objective Vital Signs: Vital Signs Temperature 98.7 F 07/06/17 14:48 Pulse Rate 84 03/27/17 14:48 Respiratory Rate 16 03/27/17 14:48 Blood Pressure 121/61 03/27/17 14:48 O2 Sat by Pulse Oximetry (%) 94 L 03/27/17 14:48 Constitutional: Yes: No Distress, Calm Cardiovascular: Yes: Regular Rate and Rhythm Respiratory: Yes: Regular, CTA Bilaterally Gastrointestinal: Yes: Normal Bowel Sounds, Soft Musculoskeletal: Yes: Other Extremities: Yes: Other Neurological: Yes: Alert, Oriented Labs: CBC, BMP 03/27/17 07:34 03/27/17 07:34 INR, PTT INR 1.28 (0.82-1.09) H 03/23/17 16:13 Assessment/Plan Problem List - Problems (1) Sepsis Code(s): A41.9 - SEPSIS, UNSPECIFIED ORGANISM (2) Bacteremia Code(s): R78.81 - BACTEREMIA (3) UTI (urinary tract infection) Code(s): N39.0 - URINARY TRACT INFECTION, SITE NOT SPECIFIED (4) HLD (hyperlipidemia) Code(s): E78.5 - HYPERLIPIDEMIA, UNSPECIFIED (5) Hypertension Code(s): I10 - ESSENTIAL (PRIMARY) HYPERTENSION 6 pyelonephritis after looking at patients symptoms i am worried why did the patient become hypoxic and had to be placed on nasal cannula i have discussed this with the nursing staff we are going to get a stat dvt also i have asked the staff to relay the message to primary physcian plan dvt of the leg continue current abx rest continue current mgmt rest as primary
[2017-03-27] MEDS: ATORVASTATIN CA 20 MG TABLET (FP) PO SCH (21:36)
[2017-03-28] MEDS: PIPERACILLIN/TAZOB 3.375 GM 50 ML IVPB SCH ×2 (02:43→10:26)
[2017-03-28 08:55] LABS: ANION GAP 8 (8-16); CALCIUM 8.8 mg/dl (8.4-10.2); CO2 24 mmol/L (22-28); CREATININE 0.8 mg/dl (0.6-1.3); GLUCOSE,RANDOM 102 mg/dl (74-106); PHOSPHOROUS 3.5 mg/dl (2.5-4.6)
--- NOTE | 2017-03-28 09:47 | PN ---
Progress Note, Physician Chief Complaint: Mrs Hilton says she is feeling better today, having slight left sided flank pain but otherwise is feeling well. No cp, sob, n/v. - Current Medication List Current Medications: Active Medications Acetaminophen (Tylenol -) 1,000 mg PO Q6H PRN PRN Reason: FEVER OR PAIN Last Admin: 03/26/17 06:19 Dose: 1,000 mg Amlodipine Besylate (Norvasc -) 5 mg PO DAILY [facility] Last Admin: 03/27/17 09:15 Dose: 5 mg Ascorbic Acid (Vitamin C -) 1,000 mg PO DAILY [facility] Last Admin: 03/27/17 09:16 Dose: 1,000 mg Atorvastatin Calcium (Lipitor -) 20 mg PO HS [facility] Last Admin: 03/27/17 21:36 Dose: 20 mg Calcium Carbonate (Os-Jose Alejandro 500mg -) 500 mg PO DAILY [facility] Last Admin: 03/27/17 09:16 Dose: 500 mg Cholecalciferol (Vitamin D3 -) 2,000 unit PO DAILY [facility] Last Admin: 03/27/17 09:16 Dose: 2,000 unit Enoxaparin Sodium (Lovenox -) 40 mg SQ DAILY [facility] Folic Acid (Folic Acid -) 0.5 mg PO DAILY [facility] Last Admin: 03/27/17 09:15 Dose: 0.5 mg Sodium Chloride (Normal Saline -) 1,000 mls @ 75 mls/hr IV ASDIR [facility] Last Admin: 03/26/17 11:11 Dose: 75 mls/hr Piperacillin Sod/Tazobactam Sod (Zosyn 3.375gm Ivpb (Pre-Docked)) 50 mls @ 100 mls/hr IVPB Q8H-IV [facility]ON PRN Reason: Protocol Last Admin: 03/28/17 02:43 Dose: 100 mls/hr Lactobacillus Acidophilus (Bacid -) 1 tab PO DAILY [facility] Last Admin: 03/27/17 09:14 Dose: 1 tab Magnesium Oxide (Mag-Ox -) 400 mg PO DAILY [facility] Last Admin: 03/27/17 09:15 Dose: 400 mg Pantoprazole Sodium (Protonix -) 40 mg PO DAILY [facility] Last Admin: 03/27/17 09:16 Dose: 40 mg Valsartan (Diovan -) 160 mg PO DAILY [facility] Last Admin: 03/27/17 09:15 Dose: 160 mg - Objective Vital Signs: Vital Signs Temperature 98.9 F 03/28/17 06:18 Pulse Rate 95 H 03/28/17 06:18 Respiratory Rate 20 03/28/17 06:18 Blood Pressure 133/67 03/28/17 06:18 O2 Sat by Pulse Oximetry (%) 97 03/28/17 08:31 Constitutional: Yes: Well Nourished, No Distress, Calm Cardiovascular: Yes: Regular Rate and Rhythm. No: Gallop, Murmur, Rub Respiratory: Yes: Regular, CTA Bilaterally. No: Rales, Rhonchi, Wheezes Gastrointestinal: Yes: Normal Bowel Sounds, Soft. No: Distention, Tenderness Extremities: Yes: WNL Edema: No Labs: CBC, BMP 03/28/17 07:00 INR, PTT INR 1.28 (0.82-1.09) H 03/23/17 16:13 Problem List - Problems (1) Sepsis Code(s): A41.9 - SEPSIS, UNSPECIFIED ORGANISM (2) Bacteremia Code(s): R78.81 - BACTEREMIA (3) UTI (urinary tract infection) Code(s): N39.0 - URINARY TRACT INFECTION, SITE NOT SPECIFIED (4) HLD (hyperlipidemia) Code(s): E78.5 - HYPERLIPIDEMIA, UNSPECIFIED (5) Hypertension Code(s): I10 - ESSENTIAL (PRIMARY) HYPERTENSION Assessment/Plan (1) Sepsis Assessment/Plan: -secondary to UTI -resolved -appreciate ID assistance, continue zosyn -follow up ECHO, readreviewed Code(s): A41.9 - SEPSIS, UNSPECIFIED ORGANISM (2) Bacteremia Assessment/Plan: -secondary to UTI -growing e.coli resistant to ampicillin/unasyn -continue zosyn per ID, day 5 -defer to ID about when to change from IV to oral antibiotics Code(s): R78.81 - BACTEREMIA (3) UTI (urinary tract infection) Assessment/Plan: -as above Code(s): N39.0 - URINARY TRACT INFECTION, SITE NOT SPECIFIED (4) HLD (hyperlipidemia) Assessment/Plan: -continue statin Code(s): E78.5 - HYPERLIPIDEMIA, UNSPECIFIED (5) Hypertension Assessment/Plan: -continue norvasc and valsartan Code(s): I10 - ESSENTIAL (PRIMARY) HYPERTENSION (6) Diarrhea -c. diff negative -antibiotic induced diarrhea -continue lactobacillus (7) Hypoxia -? sleep apnea -outpatient pulmonary consult -off oxygen during the day -continue I/S (8) Leg pain -ultrasound of leg negative for DVT -pain resolved -add lovenox for DVT PPx
[2017-03-28 09:57] LABS: EOSINOPHIL 6.1 % (0-4.5); MCH 30.5 pg (25.7-33.7); MCHC 33.1 g/dl (32.0-36.0); MEAN CELL VOLUME 92.1 fl (80-96); MEAN PLT VOLUME 7.8 fl (7.5-11.1); NEUTROPHILS 64.1 % (42.8-82.8); PLATELET COUNT 283 K/MM3 (134-434); RDW 13.6 % (11.6-15.6); WHITE BLOOD COUNT 6.5 K/mm3 (4.0-10.8)
[2017-03-28] MEDS: LACTOBACILLUS ACIDOPHILUS 1 EACH TAB (FP) PO SCH (10:26)
[2017-03-28] MEDS: MAGNESIUM OXIDE 400 MG TABLET (FP) PO SCH (10:26)
[2017-03-28] MEDS: CALCIUM (OYSTER SHELL) 500 MG TABLET (FP) PO SCH (10:26)
[2017-03-28] MEDS: SODIUM CHLORIDE 1,000 ML IV SCH (10:26)
[2017-03-28] MEDS: CHOLECALCIFEROL (VITAMIN D3) 1,000 UNIT TABLET (FP) PO SCH (10:27)
[2017-03-28] MEDS: amLODIPine BESYLATE 5 MG TABLET (FP) PO SCH (10:27)
[2017-03-28] MEDS: PANTOPRAZOLE 40 MG TABLET (FP) PO SCH (10:27)
[2017-03-28] MEDS: VALSARTAN 160 MG TABLET (UD) PO SCH (10:27)
[2017-03-28] MEDS: FOLIC ACID 1 MG TABLET (FP) PO SCH (11:00)
[2017-03-28] MEDS: ASCORBIC ACID 500 MG TABLET (FP) PO SCH (11:23)
[2017-03-28] MEDS: ENOXAPARIN NA (PORCINE) 40 MG/0.4 ML DISP.SYRIN SQ SCH (11:23)
--- NOTE | 2017-03-28 13:27 | PN ---
Progress Note, Physician History of Present Illness: patient still continues of left flank pain she is also dropping o2 sat at night duplex negative currently stable patient had to take help of nasal canula - Current Medication List Current Medications: Active Medications Acetaminophen (Tylenol -) 1,000 mg PO Q6H PRN PRN Reason: FEVER OR PAIN Last Admin: 03/26/17 06:19 Dose: 1,000 mg Amlodipine Besylate (Norvasc -) 5 mg PO DAILY [facility] Last Admin: 03/28/17 10:27 Dose: 5 mg Ascorbic Acid (Vitamin C -) 1,000 mg PO DAILY [facility] Last Admin: 03/28/17 11:23 Dose: 1,000 mg Atorvastatin Calcium (Lipitor -) 20 mg PO HS [facility] Last Admin: 03/27/17 21:36 Dose: 20 mg Calcium Carbonate (Os-Jose Alejandro 500mg -) 500 mg PO DAILY [facility] Last Admin: 03/28/17 10:26 Dose: 500 mg Cholecalciferol (Vitamin D3 -) 2,000 unit PO DAILY [facility] Last Admin: 03/28/17 10:27 Dose: 2,000 unit Enoxaparin Sodium (Lovenox -) 40 mg SQ DAILY [facility] Last Admin: 03/28/17 11:23 Dose: 40 mg Folic Acid (Folic Acid -) 0.5 mg PO DAILY [facility] Last Admin: 03/28/17 11:00 Dose: 0.5 mg Sodium Chloride (Normal Saline -) 1,000 mls @ 75 mls/hr IV ASDIR [facility] Last Admin: 03/28/17 10:26 Dose: 75 mls/hr Piperacillin Sod/Tazobactam Sod (Zosyn 3.375gm Ivpb (Pre-Docked)) 50 mls @ 100 mls/hr IVPB Q8H-IV [facility] PRN Reason: Protocol Last Admin: 03/28/17 10:26 Dose: 100 mls/hr Lactobacillus Acidophilus (Bacid -) 1 tab PO DAILY [facility] Last Admin: 03/28/17 10:26 Dose: 1 tab Magnesium Oxide (Mag-Ox -) 400 mg PO DAILY [facility] Last Admin: 03/28/17 10:26 Dose: 400 mg Pantoprazole Sodium (Protonix -) 40 mg PO DAILY [facility] Last Admin: 03/28/17 10:27 Dose: 40 mg Valsartan (Diovan -) 160 mg PO DAILY [facility] Last Admin: 03/28/17 10:27 Dose: 160 mg - Objective Vital Signs: Vital Signs Temperature 98.9 F 03/28/17 06:18 Pulse Rate 95 H 03/28/17 06:18 Respiratory Rate 20 03/28/17 06:18 Blood Pressure 133/67 03/28/17 06:18 O2 Sat by Pulse Oximetry (%) 97 03/28/17 08:31 Constitutional: Yes: No Distress, Calm Cardiovascular: Yes: Regular Rate and Rhythm Respiratory: Yes: Regular, CTA Bilaterally Gastrointestinal: Yes: Normal Bowel Sounds, Soft Musculoskeletal: Yes: WNL Extremities: Yes: Other (left leg swelling improving) Neurological: Yes: Alert, Oriented Psychiatric: Yes: Alert, Oriented Labs: CBC, BMP 03/28/17 07:00 03/28/17 07:00 INR, PTT INR 1.28 (0.82-1.09) H 03/23/17 16:13 Assessment/Plan Problem List - Problems (1) Sepsis Code(s): A41.9 - SEPSIS, UNSPECIFIED ORGANISM (2) Bacteremia Code(s): R78.81 - BACTEREMIA (3) UTI (urinary tract infection) Code(s): N39.0 - URINARY TRACT INFECTION, SITE NOT SPECIFIED (4) HLD (hyperlipidemia) Code(s): E78.5 - HYPERLIPIDEMIA, UNSPECIFIED (5) Hypertension Code(s): I10 - ESSENTIAL (PRIMARY) HYPERTENSION 6 pyelonephritis r/o pe plan will order a ct of the chest continue iv abx for now still having pain repeat cx negative once patient has no pain will switch to oral
[2017-03-28] MEDS: ERTAPENEM SODIUM IVPB SCH (14:30)
[2017-03-28] MEDS: ATORVASTATIN CA 20 MG TABLET (FP) PO SCH (21:36)
[2017-03-29 08:03] LABS: BASOPHIL 0.9 % (0-2.0); EOSINOPHIL 5.9 % (0-4.5); MCH 31.7 pg (25.7-33.7); MCHC 34.6 g/dl (32.0-36.0); MEAN CELL VOLUME 91.6 fl (80-96); MEAN PLT VOLUME 7.3 fl (7.5-11.1); NEUTROPHILS 70.8 % (42.8-82.8); PLATELET COUNT 336 K/MM3 (134-434); RDW 13.9 % (11.6-15.6); WHITE BLOOD COUNT 7.7 K/mm3 (4.0-10.8)
[2017-03-29 08:31] LABS: ANION GAP 7 (8-16); CALCIUM 9.1 mg/dl (8.4-10.2); CO2 25 mmol/L (22-28); CREATININE 0.8 mg/dl (0.6-1.3); GLUCOSE,RANDOM 104 mg/dl (74-106); MAGNESIUM 1.9 mg/dL (1.8-2.4); PHOSPHOROUS 3.7 mg/dl (2.5-4.6)
[2017-03-29] MEDS: amLODIPine BESYLATE 5 MG TABLET (FP) PO SCH (09:59)
[2017-03-29] MEDS: PANTOPRAZOLE 40 MG TABLET (FP) PO SCH (09:59)
[2017-03-29] MEDS: CALCIUM (OYSTER SHELL) 500 MG TABLET (FP) PO SCH (09:59)
[2017-03-29] MEDS: VALSARTAN 160 MG TABLET (UD) PO SCH (09:59)
[2017-03-29] MEDS: LACTOBACILLUS ACIDOPHILUS 1 EACH TAB (FP) PO SCH (09:59)
[2017-03-29] MEDS: FOLIC ACID 1 MG TABLET (FP) PO SCH (10:00)
[2017-03-29] MEDS: ASCORBIC ACID 500 MG TABLET (FP) PO SCH (10:00)
[2017-03-29] MEDS: MAGNESIUM OXIDE 400 MG TABLET (FP) PO SCH (10:01)
[2017-03-29] MEDS: CHOLECALCIFEROL (VITAMIN D3) 1,000 UNIT TABLET (FP) PO SCH (10:01)
[2017-03-29] MEDS: ERTAPENEM SODIUM IVPB SCH (10:01)
[2017-03-29] MEDS: ENOXAPARIN NA (PORCINE) 40 MG/0.4 ML DISP.SYRIN SQ SCH (10:01)
--- NOTE | 2017-03-29 10:23 | PN ---
Progress Note, Physician History of Present Illness: patient continues to have low o2 sat at night needing oxygen for some time and then normalizes ct PE done is negative c/o of pain still - Current Medication List Current Medications: Active Medications Acetaminophen (Tylenol -) 1,000 mg PO Q6H PRN PRN Reason: FEVER OR PAIN Last Admin: 03/26/17 06:19 Dose: 1,000 mg Amlodipine Besylate (Norvasc -) 5 mg PO DAILY [facility] Last Admin: 03/29/17 09:59 Dose: 5 mg Ascorbic Acid (Vitamin C -) 1,000 mg PO DAILY [facility] Last Admin: 03/29/17 10:00 Dose: 1,000 mg Atorvastatin Calcium (Lipitor -) 20 mg PO HS [facility] Last Admin: 03/28/17 21:36 Dose: 20 mg Calcium Carbonate (Os-Jose Alejandro 500mg -) 500 mg PO DAILY [facility] Last Admin: 03/29/17 09:59 Dose: 500 mg Cholecalciferol (Vitamin D3 -) 2,000 unit PO DAILY [facility] Last Admin: 03/29/17 10:01 Dose: 2,000 unit Enoxaparin Sodium (Lovenox -) 40 mg SQ DAILY [facility] Last Admin: 03/29/17 10:01 Dose: 40 mg Folic Acid (Folic Acid -) 0.5 mg PO DAILY [facility] Last Admin: 03/29/17 10:00 Dose: 0.5 mg Ertapenem (Invanz (Pre-Docked)) 50 mls @ 50 mls/hr IVPB DAILY [facility] PRN Reason: Protocol Last Admin: 03/29/17 10:01 Dose: 50 mls/hr Lactobacillus Acidophilus (Bacid -) 1 tab PO DAILY [facility] Last Admin: 03/29/17 09:59 Dose: 1 tab Magnesium Oxide (Mag-Ox -) 400 mg PO DAILY [facility] Last Admin: 03/29/17 10:01 Dose: 400 mg Pantoprazole Sodium (Protonix -) 40 mg PO DAILY [facility] Last Admin: 03/29/17 09:59 Dose: 40 mg Valsartan (Diovan -) 160 mg PO DAILY [facility] Last Admin: 03/29/17 09:59 Dose: 160 mg - Objective Vital Signs: Vital Signs Temperature 99.2 F 03/29/17 07:17 Pulse Rate 86 03/29/17 07:17 Respiratory Rate 18 03/29/17 07:17 Blood Pressure 126/56 07/08/17 07:17 O2 Sat by Pulse Oximetry (%) 94 L 03/29/17 08:24 Constitutional: Yes: No Distress, Calm Respiratory: Yes: Regular, CTA Bilaterally Gastrointestinal: Yes: Normal Bowel Sounds, Soft Musculoskeletal: Yes: WNL Extremities: Yes: WNL Neurological: Yes: Alert, Oriented Psychiatric: Yes: Alert, Oriented Labs: CBC, BMP 03/29/17 07:48 03/29/17 07:48 INR, PTT INR 1.28 (0.82-1.09) H 03/23/17 16:13 Assessment/Plan Problem List - Problems (1) Sepsis Code(s): A41.9 - SEPSIS, UNSPECIFIED ORGANISM (2) Bacteremia Code(s): R78.81 - BACTEREMIA (3) UTI (urinary tract infection) Code(s): N39.0 - URINARY TRACT INFECTION, SITE NOT SPECIFIED (4) HLD (hyperlipidemia) Code(s): E78.5 - HYPERLIPIDEMIA, UNSPECIFIED (5) Hypertension Code(s): I10 - ESSENTIAL (PRIMARY) HYPERTENSION 6 pyelonephritis r/o pe plan will give last dose of iv tomorrow then will switch to oral
--- NOTE | 2017-03-29 10:55 | PN ---
Progress Note, Physician History of Present Illness: Has been having decreased O2 sats at night, CT neg for PE (small amount pleural effusions seen with atalectasis bilaterally). Otherwise, had some diarrhea the other day, but none today. To receive last dose IV abx and switch to PO soon. - Current Medication List Current Medications: Active Medications Acetaminophen (Tylenol -) 1,000 mg PO Q6H PRN PRN Reason: FEVER OR PAIN Last Admin: 03/26/17 06:19 Dose: 1,000 mg Amlodipine Besylate (Norvasc -) 5 mg PO DAILY [facility] Last Admin: 03/29/17 09:59 Dose: 5 mg Ascorbic Acid (Vitamin C -) 1,000 mg PO DAILY [facility] Last Admin: 03/29/17 10:00 Dose: 1,000 mg Atorvastatin Calcium (Lipitor -) 20 mg PO HS [facility] Last Admin: 03/28/17 21:36 Dose: 20 mg Calcium Carbonate (Os-Jose Alejandro 500mg -) 500 mg PO DAILY [facility] Last Admin: 03/29/17 09:59 Dose: 500 mg Cholecalciferol (Vitamin D3 -) 2,000 unit PO DAILY [facility] Last Admin: 03/29/17 10:01 Dose: 2,000 unit Enoxaparin Sodium (Lovenox -) 40 mg SQ DAILY [facility] Last Admin: 03/29/17 10:01 Dose: 40 mg Folic Acid (Folic Acid -) 0.5 mg PO DAILY [facility] Last Admin: 03/29/17 10:00 Dose: 0.5 mg Ertapenem (Invanz (Pre-Docked)) 50 mls @ 50 mls/hr IVPB DAILY [facility] PRN Reason: Protocol Last Admin: 03/29/17 10:01 Dose: 50 mls/hr Lactobacillus Acidophilus (Bacid -) 1 tab PO DAILY [facility] Last Admin: 03/29/17 09:59 Dose: 1 tab Magnesium Oxide (Mag-Ox -) 400 mg PO DAILY [facility] Last Admin: 03/29/17 10:01 Dose: 400 mg Pantoprazole Sodium (Protonix -) 40 mg PO DAILY [facility] Last Admin: 03/29/17 09:59 Dose: 40 mg Valsartan (Diovan -) 160 mg PO DAILY [facility] Last Admin: 03/29/17 09:59 Dose: 160 mg - Objective Vital Signs: Vital Signs Temperature 99.2 F 03/29/17 07:17 Pulse Rate 86 03/29/17 07:17 Respiratory Rate 18 03/29/17 07:17 Blood Pressure 126/56 03/29/17 07:17 O2 Sat by Pulse Oximetry (%) 94 L 03/29/17 08:24 Constitutional: Yes: No Distress, Calm Eyes: Yes: Conjunctiva Clear, EOM Intact HENT: Yes: Atraumatic, Normocephalic Neck: Yes: Supple, Trachea Midline Cardiovascular: Yes: Regular Rate and Rhythm, S1, S2. No: Murmur Respiratory: Yes: Regular, CTA Bilaterally. No: Rales, Rhonchi, Wheezes Gastrointestinal: Yes: Normal Bowel Sounds, Soft. No: Distention, Tenderness Edema: No Neurological: Yes: Alert, Oriented Labs: CBC, BMP 03/29/17 07:48 03/29/17 07:48 INR, PTT INR 1.28 (0.82-1.09) H 03/23/17 16:13 Assessment/Plan Current Active Problems Bacteremia (Acute) Right Pyelonephritis Sepsis (Acute) UTI (urinary tract infection) (Acute) PVD, s/p Left leg vein stripping Hypoxia -hypoxia due to atalectasis? small effusion/ slight fluid overload? -echo with normal EF, CT shows no PE -with IVF decreased and using incentive spirometer, hopefully oxygen levels return to normal\ -to cont abx for now
[2017-03-29] MEDS: HYDROCORTISONE 1% TOPICAL CREAM 30 GM TUBE TP SCH ×2 (13:09→21:13)
[2017-03-29] MEDS: ATORVASTATIN CA 20 MG TABLET (FP) PO SCH (21:11)
[2017-03-30 08:32] LABS: BASOPHIL 0.8 % (0-2.0); EOSINOPHIL 5.9 % (0-4.5); MCH 30.8 pg (25.7-33.7); MCHC 33.1 g/dl (32.0-36.0); MEAN CELL VOLUME 92.9 fl (80-96); MEAN PLT VOLUME 7.5 fl (7.5-11.1); NEUTROPHILS 66.9 % (42.8-82.8); PLATELET COUNT 340 K/MM3 (134-434); WHITE BLOOD COUNT 7.5 K/mm3 (4.0-10.8)
[2017-03-30 08:33] LABS: ALK PHOS 111 U/L (32-92); ANION GAP 7 (8-16); BILIRUBIN,TOTAL 0.5 mg/dl (0.2-1.0); CALCIUM 8.9 mg/dl (8.4-10.2); CO2 27 mmol/L (22-28); CREATININE 0.7 mg/dl (0.6-1.3); GLUCOSE,RANDOM 100 mg/dl (74-106); SGOT/AST 40 U/L (10-42); SGPT/ALT 76 U/L (10-40); TOT PROT 5.6 g/dl (6.4-8.3)
[2017-03-30] MEDS: ACETAMINOPHEN 500 MG TABLET (FP) PO PRN (08:35)
[2017-03-30 09:32] VITALS: BP 129/56; PULSE 86; TEMP 97.7
[2017-03-30] MEDS: ASCORBIC ACID 500 MG TABLET (FP) PO SCH (09:32)
[2017-03-30] MEDS: FOLIC ACID 1 MG TABLET (FP) PO SCH (09:33)
[2017-03-30] MEDS: CHOLECALCIFEROL (VITAMIN D3) 1,000 UNIT TABLET (FP) PO SCH (09:34)
[2017-03-30] MEDS: PANTOPRAZOLE 40 MG TABLET (FP) PO SCH (09:34)
[2017-03-30] MEDS: HYDROCORTISONE 1% TOPICAL CREAM 30 GM TUBE TP SCH (09:34)
[2017-03-30] MEDS: amLODIPine BESYLATE 5 MG TABLET (FP) PO SCH (09:34)
[2017-03-30] MEDS: VALSARTAN 160 MG TABLET (UD) PO SCH (09:34)
[2017-03-30] MEDS: LACTOBACILLUS ACIDOPHILUS 1 EACH TAB (FP) PO SCH (09:34)
[2017-03-30] MEDS: CALCIUM (OYSTER SHELL) 500 MG TABLET (FP) PO SCH (09:34)
[2017-03-30] MEDS: MAGNESIUM OXIDE 400 MG TABLET (FP) PO SCH (09:34)
[2017-03-30] MEDS: ENOXAPARIN NA (PORCINE) 40 MG/0.4 ML DISP.SYRIN SQ SCH (09:35)
[2017-03-30] MEDS: ERTAPENEM SODIUM IVPB SCH (09:35)
--- NOTE | 2017-03-30 11:03 | PN ---
Progress Note, Physician History of Present Illness: Notes a slight COOK this morning, otherwise feeling OK. Still having some diarrhea. Oxygen levels were better with the incentive spirometer use. - Current Medication List Current Medications: Active Medications Acetaminophen (Tylenol -) 1,000 mg PO Q6H PRN PRN Reason: FEVER OR PAIN Last Admin: 03/30/17 08:35 Dose: 1,000 mg Amlodipine Besylate (Norvasc -) 5 mg PO DAILY [facility] Last Admin: 03/30/17 09:34 Dose: 5 mg Ascorbic Acid (Vitamin C -) 1,000 mg PO DAILY [facility] Last Admin: 03/30/17 09:32 Dose: 1,000 mg Atorvastatin Calcium (Lipitor -) 20 mg PO HS [facility] Last Admin: 03/29/17 21:11 Dose: 20 mg Calcium Carbonate (Os-Jose Alejandro 500mg -) 500 mg PO DAILY [facility] Last Admin: 03/30/17 09:34 Dose: 500 mg Cholecalciferol (Vitamin D3 -) 2,000 unit PO DAILY [facility] Last Admin: 03/30/17 09:34 Dose: 2,000 unit Enoxaparin Sodium (Lovenox -) 40 mg SQ DAILY [facility] Last Admin: 03/30/17 09:35 Dose: 40 mg Folic Acid (Folic Acid -) 0.5 mg PO DAILY [facility] Last Admin: 03/30/17 09:33 Dose: 0.5 mg Hydrocortisone (Hytone 1% Cream -) 1 applic TP BID [facility] Last Admin: 03/30/17 09:34 Dose: 1 applic Ertapenem (Invanz (Pre-Docked)) 50 mls @ 50 mls/hr IVPB DAILY [facility] PRN Reason: Protocol Last Admin: 03/30/17 09:35 Dose: 50 mls/hr Lactobacillus Acidophilus (Bacid -) 1 tab PO DAILY [facility] Last Admin: 03/30/17 09:34 Dose: 1 tab Magnesium Oxide (Mag-Ox -) 400 mg PO DAILY [facility] Last Admin: 03/30/17 09:34 Dose: 400 mg Pantoprazole Sodium (Protonix -) 40 mg PO DAILY [facility] Last Admin: 03/30/17 09:34 Dose: 40 mg Valsartan (Diovan -) 160 mg PO DAILY [facility] Last Admin: 03/30/17 09:34 Dose: 160 mg - Objective Vital Signs: Vital Signs Temperature 97.7 F 03/30/17 09:29 Pulse Rate 86 03/30/17 09:29 Respiratory Rate 18 03/30/17 09:29 Blood Pressure 129/56 03/30/17 09:29 O2 Sat by Pulse Oximetry (%) 98 03/30/17 09:00 Constitutional: Yes: No Distress, Calm Eyes: Yes: Conjunctiva Clear, EOM Intact, PERRL HENT: Yes: Atraumatic, Normocephalic Neck: Yes: Supple, Trachea Midline Cardiovascular: Yes: Regular Rate and Rhythm, S1, S2. No: Murmur Respiratory: Yes: Regular, CTA Bilaterally. No: Rales, Rhonchi, Wheezes Gastrointestinal: Yes: Normal Bowel Sounds, Soft. No: Distention, Tenderness Edema: No Labs: CBC, BMP 03/30/17 06:53 03/30/17 06:53 INR, PTT INR 1.28 (0.82-1.09) H 03/23/17 16:13 Assessment/Plan Current Active Problems Bacteremia (Acute) Right Pyelonephritis Sepsis (Acute) UTI (urinary tract infection) (Acute) PVD, s/p Left leg vein stripping Hypoxia -ID to re-evaluate to see if can switch to PO abx -if so then d/c planning
--- NOTE | 2017-03-30 12:29 | PN ---
Progress Note, Physician History of Present Illness: patient doing well no issues minimal pain - Current Medication List Current Medications: Active Medications Acetaminophen (Tylenol -) 1,000 mg PO Q6H PRN PRN Reason: FEVER OR PAIN Last Admin: 03/30/17 08:35 Dose: 1,000 mg Amlodipine Besylate (Norvasc -) 5 mg PO DAILY [facility] Last Admin: 03/30/17 09:34 Dose: 5 mg Ascorbic Acid (Vitamin C -) 1,000 mg PO DAILY [facility] Last Admin: 03/30/17 09:32 Dose: 1,000 mg Atorvastatin Calcium (Lipitor -) 20 mg PO HS [facility] Last Admin: 03/29/17 21:11 Dose: 20 mg Calcium Carbonate (Os-Jose Alejandro 500mg -) 500 mg PO DAILY [facility] Last Admin: 03/30/17 09:34 Dose: 500 mg Cholecalciferol (Vitamin D3 -) 2,000 unit PO DAILY [facility] Last Admin: 03/30/17 09:34 Dose: 2,000 unit Enoxaparin Sodium (Lovenox -) 40 mg SQ DAILY [facility] Last Admin: 03/30/17 09:35 Dose: 40 mg Folic Acid (Folic Acid -) 0.5 mg PO DAILY [facility] Last Admin: 03/30/17 09:33 Dose: 0.5 mg Hydrocortisone (Hytone 1% Cream -) 1 applic TP BID [facility] Last Admin: 03/30/17 09:34 Dose: 1 applic Ertapenem (Invanz (Pre-Docked)) 50 mls @ 50 mls/hr IVPB DAILY [facility] PRN Reason: Protocol Last Admin: 03/30/17 09:35 Dose: 50 mls/hr Lactobacillus Acidophilus (Bacid -) 1 tab PO DAILY [facility] Last Admin: 03/30/17 09:34 Dose: 1 tab Magnesium Oxide (Mag-Ox -) 400 mg PO DAILY [facility] Last Admin: 03/30/17 09:34 Dose: 400 mg Pantoprazole Sodium (Protonix -) 40 mg PO DAILY [facility] Last Admin: 03/30/17 09:34 Dose: 40 mg Valsartan (Diovan -) 160 mg PO DAILY [facility] Last Admin: 03/30/17 09:34 Dose: 160 mg - Objective Vital Signs: Vital Signs Temperature 97.7 F 03/30/17 09:29 Pulse Rate 86 03/30/17 09:29 Respiratory Rate 18 03/30/17 09:29 Blood Pressure 129/56 03/30/17 09:29 O2 Sat by Pulse Oximetry (%) 98 03/30/17 09:00 Constitutional: Yes: No Distress, Calm Cardiovascular: Yes: Regular Rate and Rhythm Respiratory: Yes: Regular, CTA Bilaterally Gastrointestinal: Yes: Normal Bowel Sounds, Soft Musculoskeletal: Yes: WNL Extremities: Yes: WNL Neurological: Yes: Alert, Oriented Psychiatric: Yes: Alert, Oriented Labs: CBC, BMP 03/30/17 06:53 03/30/17 06:53 INR, PTT INR 1.28 (0.82-1.09) H 03/23/17 16:13 Assessment/Plan Problem List - Problems (1) Sepsis Code(s): A41.9 - SEPSIS, UNSPECIFIED ORGANISM (2) Bacteremia Code(s): R78.81 - BACTEREMIA (3) UTI (urinary tract infection) Code(s): N39.0 - URINARY TRACT INFECTION, SITE NOT SPECIFIED (4) HLD (hyperlipidemia) Code(s): E78.5 - HYPERLIPIDEMIA, UNSPECIFIED (5) Hypertension Code(s): I10 - ESSENTIAL (PRIMARY) HYPERTENSION 6 pyelonephritis r/o pe plan start cipro 500 mg twice a day for 14 days patient is stable all cx negative
--- NOTE | 2017-03-30 13:28 | DS ---
Physical Examination Vital Signs: Vital Signs Temperature 97.7 F 03/30/17 09:29 Pulse Rate 86 03/30/17 09:29 Respiratory Rate 18 03/30/17 09:29 Blood Pressure 129/56 03/30/17 09:29 O2 Sat by Pulse Oximetry (%) 98 03/30/17 09:00 Labs: CBC, BMP 03/30/17 06:53 03/30/17 06:53 Discharge Summary Reason For Visit: UTI & SEPSIS Current Active Problems Bacteremia (Acute) Pyelonephritis due to Escherichia coli (Acute) Sepsis (Acute) UTI (urinary tract infection) (Acute) Hospital Course: (see also progress note from earlier today). 76 yo female presented with fevers , found to have positive blood cultures for E.coli. CT revealed right pyelonephritis. Started on IV abx. Had echo (ruled out for endocarditis). had episodes of hypoxia (88-89% O2 sat) in evenings, doppler of legs negative for DVT and CT chest showed no PE (small amount pleural fluid and atalectasis bilaterally) and likely hypoxia was due to fluid retention form abx (high sodium load). EF on echo was normal. She will be discharged with 14 days of cipro. (did have a rash on back after Invance was started, unclear if allergy or unrelated). Condition: Stable - Home Medications Comprehensive Discharge Medication List: Ambulatory Orders Olmesartan Medoxomil [Benicar -] 20 mg PO DAILY 11/03/13 Amlodipine Besylate [Norvasc -] 5 mg PO DAILY #7 tablet 03/27/15 Atorvastatin Ca [Lipitor] 20 mg PO HS 10/29/16 Ascorbic Acid [Vitamin C -] 1,000 mg PO DAILY 02/28/17 Calcium Carbonate [Calcium] 600 mg PO DAILY 02/28/17 Cholecalciferol (Vitamin D3) [Vitamin D3] 2,000 unit PO DAILY 02/28/17 Folic Acid 400 mg PO DAILY 02/28/17 Magnesium 250 mg PO DAILY 02/28/17 Vitamin B Complex [B Complex] 1 each PO DAILY 02/28/17 Vitamin E 400 unit PO DAILY 02/28/17 Pantoprazole Sodium [Protonix] 40 mg PO DAILY 03/23/17 Acetaminophen [Tylenol .Extra-Strength -] 1,000 mg PO Q6H PRN #0 tablet 07/09/ 17 Ciprofloxacin HCl 500 mg PO BID #28 tablet 03/30/17 Hydrocortisone 1% Cream [Hytone 1% Cream -] 1 applic TP BID #30 grams 03/30/17 Lactobacillus Acidophilus [Bacid -] 1 tab PO BID #60 tab 03/30/17
== END 2017-03-30 13:50 | disposition home or self-care (01) | DRG 872 ==
LOC: FER 15:24 → FM/S 19:58
PROVIDERS: ADMIT Internal Medicine; ATTEND Internal Medicine
PROC: 3E0F7GC Introduction of Other Therapeutic Substance into Respiratory Tract, Via Natural or Artificial Opening (ICD-10-PCS; principal; 2017-03-23)
DX: A41.9 Sepsis, unspecified organism (principal); N12 Tubulo-interstitial nephritis, not specified as acute or chronic; Q21.1 Atrial septal defect; J98.11 Atelectasis; J90 Pleural effusion, not elsewhere classified; B96.20 Unspecified Escherichia coli [E. coli] as the cause of diseases classified elsewhere; I10 Essential (primary) hypertension; E78.5 Hyperlipidemia, unspecified; R09.02 Hypoxemia; I73.9 Peripheral vascular disease, unspecified
CPT/HCPCS: 36415; 71020-TC; 71275-TC; 74176-TC; 80048; 80053; 81003; 81015; 83605; 83735; 84100; 85025; 85610; 85651; 85730; 86038; 86140; 86618; 86666; 86753; 87040; 87086; 87186; 87324; 87449; 93005; 93306-TC; 93971-TC; 94010; 97116-GP; 97161-GP; 99283-25

== ENCOUNTER 2019-03-15 07:44 | Day surgery (SDC) | payer OTHER, BC ==
[2019-03-12 15:13] VITALS: BMI 27.3
[2019-03-15 10:13] VITALS: TEMP 97.2
[2019-03-15 12:34] VITALS: BP 105/52; PULSE 61
--- NOTE | 2019-03-16 18:19 | PATH ---
Surgical Pathology Report Patient Name: GILES HARP [facility]. Rec. #: [id number] /Age/Gender: 1940 (Age: 78) / F Account: [id number] Location: [facility]-ENDOSCOPY Taken: 03/15/2019 Received: 03/15/2019 Reported: 03/16/2019 Physicians: Delmy Reynolds M.D. Specimen(s) Received A: BX DUODENUM 2ND PORTION B: BX ANTRUM C: BX GE JUNCTION D: BX PROXIMAL TRANSVERSE COLON POLYP E: RECTAL POLYP Clinical History History of gastric ulcers, history of rectal adenomas and diverticulosis Postoperative diagnosis: Hiatal hernia, colon polyps, diverticulosis Final Diagnosis A. DUODENUM SECOND PORTION, BIOPSY: DUODENUM MUCOSA WITH NO SIGNIFICANT PATHOLOGIC CHANGE. NO HISTOLOGIC EVIDENCE OF CELIAC DISEASE. B. ANTRUM, BIOPSY: GASTRIC MUCOSA WITH MILD CHRONIC GASTRITIS. IMMUNOSTAIN FOR H. PYLORI IS NEGATIVE. NEGATIVE FOR INTESTINAL METAPLASIA. C. 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 NEGATIVE FOR DYSPLASIA. D. PROXIMAL TRANSVERSE COLON POLYP, POLYPECTOMY: TUBULAR ADENOMA. E. RECTAL POLYP, POLYPECTOMY: TUBULAR ADENOMA. Electronically Signed Poppy Riggs M.D. Gross Description A. Received in formalin, labeled "biopsy duodenum second portion and bulb," are 3 reid, irregular portions of soft tissue ranging from 0.2-0.4 cm. in greatest dimension. The specimens are submitted in toto in one cassette. B. Received in formalin, labeled "biopsy antrum" are 3 reid, irregular portions of soft tissue ranging from 0.4-0.5 cm. in greatest dimension. The specimens are submitted in toto in one cassette. C. Received in formalin, labeled "biopsy GE junction" are 4 reid, irregular portions of soft tissue ranging from 0.3-0.6 cm. in greatest dimension. The specimens are submitted in toto in one cassette. D. Received in formalin, labeled "polyp proximal transverse" are 2 reid, irregular portions of soft tissue measuring 0.3 and 1.3 cm. in greatest dimension. The specimens are submitted in toto in one cassette. E. Received in formalin, labeled "polyp rectum" are 3 reid, irregular to polypoid portions of soft tissue ranging from 0.2-0.8 cm. in greatest dimension. The specimens are submitted in toto in one cassette. 03/15/2019 [facility]03/15/2019
== END 2019-03-15 11:14 | disposition home or self-care (01) ==
LOC: JASU-ENDO 07:44
PROVIDERS: ATTEND Internal Medicine Gastroenterology
PROC: 0DBL8ZX Excision of Transverse Colon, Via Natural or Artificial Opening Endoscopic, Diagnostic (ICD-10-PCS; 2019-03-15)
PROC: 0DB48ZX Excision of Esophagogastric Junction, Via Natural or Artificial Opening Endoscopic, Diagnostic (ICD-10-PCS; 2019-03-15)
PROC: 0DB68ZX Excision of Stomach, Via Natural or Artificial Opening Endoscopic, Diagnostic (ICD-10-PCS; 2019-03-15)
PROC: 0DBP8ZX Excision of Rectum, Via Natural or Artificial Opening Endoscopic, Diagnostic (ICD-10-PCS; principal; 2019-03-15 09:00)
DX: Z12.11 Encounter for screening for malignant neoplasm of colon (principal); Z86.010 Personal history of colon polyps; D12.3 Benign neoplasm of transverse colon; K62.1 Rectal polyp; K57.30 Diverticulosis of large intestine without perforation or abscess without bleeding; K25.9 Gastric ulcer, unspecified as acute or chronic, without hemorrhage or perforation; K44.9 Diaphragmatic hernia without obstruction or gangrene
CPT/HCPCS: 88305-TC; 88342-TC

== ENCOUNTER 2023-01-03 04:34 | Day surgery (SDC) | payer OTHER ==
[2023-01-01 12:09] VITALS: BMI 26.7
[2023-01-03] MEDS ORDERED: SIMETHICONE 40 MG/0.6 ML BOTTLE ONE (07:57)
[2023-01-03 08:27] VITALS: TEMP 97.5
[2023-01-03 09:10] VITALS: BP 113/56; PULSE 66; RESP 16
== END 2023-01-03 09:50 | disposition home or self-care (01) ==
LOC: JASU-ENDO 04:34
PROVIDERS: ATTEND Internal Medicine Gastroenterology
PROC: 0DB98ZX Excision of Duodenum, Via Natural or Artificial Opening Endoscopic, Diagnostic (ICD-10-PCS; 2023-01-03)
PROC: 0DB78ZX Excision of Stomach, Pylorus, Via Natural or Artificial Opening Endoscopic, Diagnostic (ICD-10-PCS; 2023-01-03)
PROC: 0DB48ZX Excision of Esophagogastric Junction, Via Natural or Artificial Opening Endoscopic, Diagnostic (ICD-10-PCS; 2023-01-03)
PROC: 0DJD8ZZ Inspection of Lower Intestinal Tract, Via Natural or Artificial Opening Endoscopic (ICD-10-PCS; principal; 2023-01-03 08:00)
DX: Z12.11 Encounter for screening for malignant neoplasm of colon (principal); K57.30 Diverticulosis of large intestine without perforation or abscess without bleeding; Z86.010 Personal history of colon polyps; K21.00 Gastro-esophageal reflux disease with esophagitis, without bleeding; K44.9 Diaphragmatic hernia without obstruction or gangrene; K29.50 Unspecified chronic gastritis without bleeding; K22.70 Barrett's esophagus without dysplasia
CPT/HCPCS: 43239; G0105; 88305-TC; 88342-TC